=== PATIENT | female | born 2005 | race Two or more races ===

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

== ENCOUNTER 2023-01-16 13:59 | Outpatient (REF) | payer MEDICAID, SELFPAY ==
--- NOTE | ~2023-01-16 | US_ITS ---
EXAMINATION: US OBSTETRICAL ULTRASOUND CLINICAL INFORMATION: First trimester bleeding. COMPARISON: None available. LMP: 12/07/2022. Gestational age by maternal dates is 5 weeks and 5 days. Estimated date of delivery by maternal dates is 09/13/2023. TECHNIQUE: Transabdominal imaging of pelvis is obtained. FINDINGS: There is a single intrauterine gestational sac with visible yolk sac, embryo/fetus, and cardiac activity. There is no significant subchorionic hemorrhage or hematoma. HR: 109 beats per minute. CRL (crown rump length): 0.25 cm (5 weeks and 6 days +/- 4 days). GRETTA (estimated date of delivery): 09/12/2023 +/- 4 days. MATERNAL ADNEXA: The right maternal ovary measures 3.3 x 1.8 x 2.4 cm. The left maternal ovary measures 2.9 x 2.7 x 2.0 cm. There is a small corpus luteal cyst measuring 2.0 x 1.6 x 1.8 cm. There is no significant maternal adnexal mass. No maternal pelvic ascites. US/US OB pelvic and transvaginal IMPRESSION: 1. Single intrauterine gestation with ultrasound gestational age of 5 weeks and 6 days +/- 4 days. 2. Estimated date of delivery is 09/12/2023. +/- 4 days. 3. Small corpus luteal cyst left ovary.
== END 2023-01-16 14:00 | disposition home or self-care (01) ==
LOC: HO.US 13:59
PROVIDERS: Visit Provider Internal Medicine
DX: O20.9 Hemorrhage in early pregnancy, unspecified (principal); Z3A.01 Less than 8 weeks gestation of pregnancy
CPT/HCPCS: 76801; 76817

== ENCOUNTER 2023-01-17 14:14 | Outpatient (REF) | payer MEDICAID, SELFPAY | END 2023-01-17 14:15 | disposition home or self-care (01) | LOC: HO.LNP 14:14 | PROVIDERS: Visit Provider Obstetrics & Gynecology | DX: Z34.90 Encounter for supervision of normal pregnancy, unspecified, unspecified trimester (principal) | CPT/HCPCS: 0353U; 86850; 86900; 99202 ==

== ENCOUNTER 2023-01-17 14:52 | Outpatient (REF) | payer MEDICAID, SELFPAY ==
[2023-01-18 01:07] LABS: CT PCR NOT DETECTED (Not Detect.); NG PCR NOT DETECTED (Not Detect.)
== END 2023-01-17 14:53 | disposition home or self-care (01) ==
LOC: HO.LAB 14:52
PROVIDERS: Visit Provider Obstetrics & Gynecology
DX: O20.9 Hemorrhage in early pregnancy, unspecified (principal)
CPT/HCPCS: 0353U; 86850; 86900

== ENCOUNTER 2023-02-14 09:47 | Outpatient (REF) | payer MEDICAID, SELFPAY ==
[2023-02-14 11:06] LABS: Hematocrit 39.3 % (37.0-47.0); Hemoglobin 12.9 g/dl (12.0-16.0); Mean Corpuscular HGB Conc 32.8 g/dl (31.0-35.0); Mean Corpuscular Hemoglobin 26.1 pg (27.0-33.0); Mean Corpuscular Volume 79.6 fL (80.0-98.0); Mean Platelet Volume 9.3 fL (9.4-12.3); Platelet Count 275 X10*3/uL (160-400); Red Blood Count 4.94 X10*6/uL (4.20-5.50); Red Cell Distribution Width 13.9 % (11.0-16.0); White Blood Count 12.2 X10*3/uL (4.8-10.8)
[2023-02-14 11:32] LABS: Amphetamine Screen Urine Not Detected (Not Detect); Barbiturates, Urine Not Detected (Not Detect); Benzodiazepines Screen Urine Not Detected (Not Detect); Cannabinoid Screen Urine Not Detected (Not Detect); Cocaine Screen Urine Not Detected (Not Detect); Fentanyl, urine Not Detected (Not Detect); Opiate Screen Urine Not Detected (Not Detect); Phencyclidine Screen Urine Not Detected (Not Detect)
[2023-02-14 12:02] LABS: HBsAGNum1 0.24 S/CO (0.00-0.99); HIV AB/AG Nonreactive (Nonreactive); HIV Num 1 0.08 S/CO (0.00-0.99); Hepatitis B Surface Antigen Negative (Negative); ~HepC Num1 0.07 S/CO (0.00-0.79); ~Hepatitis C Antibody Nonreactive (Nonreactive)
[2023-02-14 12:05] LABS: Syphilis Screen Nonreactive (Nonreactive)
[2023-02-16 08:33] LABS: Rubella IgG Antibody 2.79 Index
[2023-02-16 08:39] LABS: Varicella IgG Antibody <135.00 index
[2023-02-24 03:19] LABS: CF Ethnicity NOT GIVEN; Cystic Fibrosis NEGATIVE (NEGATIVE)
== END 2023-02-14 09:48 | disposition home or self-care (01) ==
LOC: HO.LAB 09:47
PROVIDERS: Visit Provider Obstetrics & Gynecology
DX: O26.891 Other specified pregnancy related conditions, first trimester (principal); F41.9 Anxiety disorder, unspecified
CPT/HCPCS: 80307; 81220; 85027; 86762; 86780; 86787; 86803; 86850; 86900; 87086; 87340; 87389

== ENCOUNTER → 2023-03-06 10:53 | Outpatient (BNVA) | payer MEDICAID, SELFPAY | PROVIDERS: Visit Provider Advanced Practice Midwife | DX: O34.81 Maternal care for other abnormalities of pelvic organs, first trimester (principal); N83.12 Corpus luteum cyst of left ovary; Z3A.12 12 weeks gestation of pregnancy | CPT/HCPCS: 99212 ==

== ENCOUNTER → 2023-04-03 08:56 | Outpatient (BNVA) | payer MEDICAID, SELFPAY | PROVIDERS: Visit Provider Advanced Practice Midwife | DX: O99.342 Other mental disorders complicating pregnancy, second trimester (principal); Z3A.16 16 weeks gestation of pregnancy | CPT/HCPCS: 99212 ==

== ENCOUNTER → 2023-04-30 09:27 | Outpatient (BNVA) | payer MEDICAID, SELFPAY | PROVIDERS: PCP Internal Medicine; Visit Provider Advanced Practice Midwife | DX: Z34.02 Encounter for supervision of normal first pregnancy, second trimester (principal); Z3A.20 20 weeks gestation of pregnancy | CPT/HCPCS: 99212 ==

== ENCOUNTER 2023-06-06 10:51 | Outpatient (REF) | payer MEDICAID, SELFPAY ==
[2023-06-06 15:30] LABS: Hematocrit 32.4 % (37.0-47.0); Hemoglobin 10.3 g/dl (12.0-16.0); Mean Corpuscular HGB Conc 31.8 g/dl (31.0-35.0); Mean Corpuscular Hemoglobin 25.9 pg (27.0-33.0); Mean Corpuscular Volume 81.6 fL (80.0-98.0); Mean Platelet Volume 10.6 fL (9.4-12.3); Platelet Count 277 X10*3/uL (160-400); Red Blood Count 3.97 X10*6/uL (4.20-5.50); Red Cell Distribution Width 13.8 % (11.0-16.0); White Blood Count 14.9 X10*3/uL (4.8-10.8)
[2023-06-06 16:57] LABS: Glucose 1 Hour PP 50gm Dose 153 mg/dL (60-140)
[2023-06-08 03:04] LABS: Syphilis Screen Nonreactive (Nonreactive)
== END 2023-06-06 10:52 | disposition home or self-care (01) ==
LOC: HO.LAB 10:51
PROVIDERS: PCP Internal Medicine; Visit Provider Advanced Practice Midwife
DX: Z34.92 Encounter for supervision of normal pregnancy, unspecified, second trimester (principal)
CPT/HCPCS: 36415; 82950; 85027; 86780; 99212

== ENCOUNTER 2023-06-06 10:51 | Outpatient (AMB) | payer MEDICAID, SELFPAY ==
--- NOTE | 2023-06-06 11:05 | A.OFFVISPN_ITS ---
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 Yarns Required: No Allergies No Known Allergies Allergy (Verified 06/06/23 11:11) Medication List - Last Reconciled 06/06/23 by Melissa Prater CNM PNV no.[id number] 400 mcg-35 mg- 25 mg-5 mg ( Gummies) 1 tab PO daily 30 days Is last menstrual period known: Yes Last menstrual period: 12/07/22 Post menopausal: No Patient : Yes PFSH Social History Household Members: Significant Other Housing: Apartment Alcohol intake: never Patient Tobacco Use Status: Never used Tobacco Current occupational status: employed Current occupation: [employer] Sexual orientation: Straight/Heterosexual Gender identity: Female Female Reproductive History Menstrual Age of Menarche: 11 Duration of menses: 3-5 days Date of last menstrual period: 12/07/22 control method: none Total pregnancies: 1 History History 1 Elective abortions 0 Para 0 Spontaneous abortions 0 Hx # Term Pregnancies 0 Ectopic pregnancies 0 Hx # Pregnancies 0 Multiple births Questionnaire History History : 1 Visit GRETTA Calculator Estimated Delivery Date Method Current WG Current Estimate 09/12/23 Ultrasound #1 26w 0d Other Estimates 09/13/23 LMP (Certain) 25w 6d Expected Delivery Route/Plan vaginal Specific Issues/Plans Hx Anxiety, Teen Varicella nonimmune. OB Problem List: 17 yr. old ? ? G1 ?P0 ? ? ?LMP: 12/07/22 EDC: 09/13/23 ?by certain lmp, conf by u/s ? ? ?Blood type: O pos Problem List: 1. Testing: Panorama/and or First Tri screen: ? ?risk NT scan:sched for 03/07/23 AFP: FAS: Glucose: early ? 28 wk glucose: pending? CBC 1st Tri: 12.9/39.3/275? 28 wk. CBC: pending GBS: Vaccinations: Flu:discussed ..... Covid:is vaxed Tdap: Education/Services WIC: CBE: Breast feeding classes:intro to latch covered... Social Supports/Stressors: Living situation: lives in own apt w BF Supports:BF, family here and in [place] Work/school: has graduated from [employer] in [place], works at [employer] Transportation: Labor, and Concerns: Labor support: Plan: Infant Feeding Plans: breast- rev intial latching- 03/06/23 control: OB Visit Log Initial Weight: 167 lb Date -?-?-?-?-?-?-?-?-?-?-?-?- EGA Weight Gest Week Fundal Ht Present FHR move Efface % Edema BP PrePreg We Weight GTT -?-?-?-?-?-?-?-?-?-?-?-?- Glucose LV Protein Blood Type 02/14/23 -?-?-?-?-?-?-?-?-?-?-?-?- 10w 0d 168 lb (+16 oz) 168 l b -?-?-?-?-?-?-?-?-?-?-?-?- 02/16/23 -?-?-?-?-?-?-?-?-?-?-?-?- 10w 2d 03/06/23 -?-?-?-?-?-?-?-?-?-?-?-?- 12w 6d 170 lb (+3 lb) 13 160 126/76 170 lb -?-?-?-?-?-?-?-?-?-?-?-?- 04/03/23 -?-?-?-?-?-?-?-?-?-?-?-?- 16w 6d 170 lb (+3 lb) 16 150 active 102/70 1 70 lb -?-?-?-?-?-?-?-?--?-?-?-?- 04/30/23 -?-?-?-?-?-?-?-?-?-?-?-?- 20w 5d 175 lb (+8 lb) 20 135 active 110/70 1 75 lb -?-?-?-?-?-?-?-?-?-?-?-?- 06/06/23 -?-?-?-?-?-?-?-?-?-?-?-?- 26w 0d 179 lb (+12 lb) 26 140 active 130/70 179 lb -?-?-?-?-?-?-?-?-?-?-?-?- Notes Visit Date: 06/06/23 Last Updated by: Melissa Prater CNM Patient is here at 26 weeks and 0 days for scheduled visit. Review of the chart shows the ultrasound that was done on May 18 at 23 weeks and 0 days was within normal limits however they had some incomplete views and they requested a follow-up scan to be done in 4 weeks and I am placing the order right now for that. She does have some sniffles today but can not tell if there allergies or a cold she does not appear ill discussed allergies and ways to ameliorate them and ways to prevent and prevent transmission of upper respiratory infections. Discussed future flu vaccines/COVID vaccines. Her next visit can be in 2 weeks and that is when we will have her get the lab work as well I explained what we we testing for. Visit Date: 04/30/23 Last Updated by: Melissa Prater CNM Patient is here for her visit. She decided she did not really need to call [facility] for her panic attacks. Discussed that if she feels she needs assistance for anything involving how she is feeling about things that that would be the best place to start. She also recounts that sometimes she gets a little bit dizzy. Discussed temporary drops in blood pressure in that can happen and what to do if she is not feeling good to sit down and put her head down. No evidence of anemia in the labs. Patient did have her nuchal translucency ultrasound and the beginning of February which was within normal limits and she says she did go for the blood work however the results from the 1st trimester screening have not arrived to the chart yet. They will be requested again. Anatomy ultrasound was ordered at the last visit but has not been scheduled yet according to the patient another request sent to schedule this soon as she is now 20 weeks and 5 days.. Reviewed intake and ext acted changes in the next few weeks in the and supports. ALEXIA 4 weeks Visit Date: 04/03/23 Last Updated by: Melissa Prater CNM Here at 16 weeks and 6 days for her visit. She is doing fairly well but she did have some things to talk about today. She has had panic attacks often on since she was 7 years old and she feels that they are coming back stronger than they were for a while she has not been to therapy or anything for it she did talk to somebody about it when she was growing up in [place] but she would like to have some help around this she does not think it is related to stress or anxiety about the baby but she does identify the issue is anxiety. She says the is no issue with relationships. Discussed options and ways to slow her breathing and will place [facility] referral and I gave her brochures in Mosotho and Syriac so she can call herself as well. She feels she is eating well she went for the nuchal translucency ultrasound and she says she did go for the blood work but results are not in the chart will have someone call for those. Order placed for anatomy survey ultrasound in more less 3 weeks at [facility]. She sometimes feels like she gets a little lightheaded and her vision goes a little bit and she gets a little dizzy discussed temporary drops in blood pressure in she is not anemic and a random blood sugar done in January was within normal range reviewed what to do if she gets dizzy and how to keep herself safe. She also was in [place] for 2 weeks and enjoyed eating a lot of her grandma's rice. RTC 4 weeks Visit Date: 03/06/23 Last Updated by: Melissa Prater CNM Patient is here for her 1st provider visit at 12 weeks and 6 days she has certain dates and her date was also confirmed by an ultrasound at 5 weeks and 6 days which shielded in GRETTA of 09/12/2023 GRETTA by her 12/07/2022 LMP is 09/13/2023. We will use her GRETTA. She has her nuchal translucency ultrasound scheduled for tomorrow at [facility] and will be bringing her boyfriend there. She graduated from vocational program in [place] and has to diploma is. She works at [employer] she lives in her own apartment with her boyfriend and she says they are very happy. She is going to visit her family in [place] on March 24. She is vaccinated against COVID. I informed her about her lab work which was normal with the exception of not being immune to chickenpox but that can be rectified after her . She has plans to breastfeed reviewed healthy diet she eats a variety of foods in her diet. Reviewed the need for calcium and a very nutrition. She takes her vitamins every day. She has no worries about STDs. Pelvic exam was deferred as it was done on 01/18/[address] Salazar. Reviewed care and reasons to call and what it problems would necessitate of visit to [facility] and what indications might result in a transfer of care. She lives and works in [place] so prefers care here for now and is fine with delivering at [facility]. RTC 4 weeks. Reviewed that she will also be getting lab work in conjunction with the ultrasound tomorrow at [facility] and we will have the results in a couple of weeks. States she has a history of anxiety but is not having any problems now she scored 1 on the EPDS. Visit Date: 02/16/23 Varicella nonimmune, vaccination Visit Date: 02/14/23 Last Updated by: Miriam Puga LPN [facility] is here today for her nurse intake. LMP12/07/22 GRETTA 09/13/23. GRETTA by u/s on 09/13/23=CWD. 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 She lives at home with her significant other, and they are both excited about the . She does have anxiety per pt, but does not see a counselor at this time. Aware to reach out if she desires to have appt. Pt has little known FH of her parents, as they do not communicate much. Pt has had some nausea but is eating and drinking well. Discussed more frequent smaller amounts of food, healthy food choices, and good H2O intake. Pt is taking her PNV every day. She was smoking MJ but quit 2 mos prior to conceiving. She denies any vaginal bleeding, or cramping. She will be starting a low impact exercise program. Pt aware she will deliver at [facility], and if she becomes High risk at any point, she would be transferred to a [facility] practice. Pt will be traveling in February to [place] for vacation. Discussed with pt NT u/s and labs that will check for chromosome d.o. Pt will have her PNL done today as well as UDS. Pt brought to front desk monitor for scheduling OB PE. Discussed with pt, how to reach weighing station operator MD. packet discussed and given to pt. Assessment & Plan Assessment & Plan (1) Encounter for screening for malformation using ultrasound: Code(s): Z36.3 - Encounter for screening for malformations Category: Medical (2) Supervision of normal in second trimester: Code(s): Z34.92 - Encounter for supervision of normal , unspecified, second trimester Category: Medical Orders: Orders US OB follow up Today Z36.3 - Encounter for screening for malformations Glucose 1 Hour PP 50gm Dose Today Z34.92 - Encounter for supervision of normal , unspecified, second trimester, Z36.3 - Encounter for screening for malformations Complete Blood Count no Diff Today Z34.92 - Encounter for supervision of normal , unspecified, second trimester, Z36.3 - Encounter for screening for malformations Syphilis Screen Today Z34.92 - Encounter for supervision of normal , unspecified, second trimester, Z36.3 - Encounter for screening for malformations Coding Level of Care Code [place] Diagnoses Encounter for screening for malformation using ultrasound Z36.3 Supervision of normal in second trimester Z34.92
[2023-06-06 11:11] VITALS: BP 130/70; BMI 28.9
== END 2023-06-06 12:05 | disposition home or self-care (01) ==
LOC: HO.HWS 10:51
PROVIDERS: PCP Internal Medicine; Visit Provider Advanced Practice Midwife
DX: Z36.3 Encounter for antenatal screening for malformations (principal); Z34.92 Encounter for supervision of normal pregnancy, unspecified, second trimester
CPT/HCPCS: 25942

== ENCOUNTER 2023-06-08 10:50 | Outpatient (REF) | payer MEDICAID, SELFPAY ==
[2023-06-08 12:43] LABS: Glucose Fasting 68 mg/dL (60-99)
[2023-06-08 14:54] LABS: Glucose 2 Hour 132 mg/dL
[2023-06-08 15:22] LABS: Glucose 3 Hour 108 mg/dL
[2023-06-08 15:32] LABS: Glucose 1 Hour 136 mg/dL
== END 2023-06-08 10:51 | disposition home or self-care (01) ==
LOC: HO.LAB 10:50
PROVIDERS: Visit Provider Advanced Practice Midwife
DX: R73.09 Other abnormal glucose (principal)
CPT/HCPCS: 36415; 82951

== ENCOUNTER 2023-06-21 14:50 | Outpatient (AMB) | payer MEDICAID, SELFPAY ==
[2023-06-21 15:03] VITALS: BP 102/66; BMI 29.0
--- NOTE | 2023-06-21 15:03 | MHC.OFFVISPN ---
Intake Vital Signs 06/21/23 15:03 Height 5 ft 6 in Weight 180 lb BMI 29.0 BP 102/66 Intake Visit Reasons: stu Intake Note: Has been having back pains and has also been cramping Seed Laboratory Assistant Required: Yes Seed Laboratory Assistant Language: Singaporean Information Interpreted: non-clinical & clinical Meat Cooler: Meat Cooler Present (Janelle) Allergies No Known Allergies Allergy (Verified 06/21/23 15:12) Is last menstrual period known: Yes Last menstrual period: 12/07/22 Post menopausal: No Patient : Yes PFSH Social History Household Members: Significant Other Housing: Apartment Alcohol intake: never Patient Tobacco Use Status: Never used Tobacco Current occupational status: employed Current occupation: [employer] Sexual orientation: Straight/Heterosexual Gender identity: Female Female Reproductive History Menstrual Age of Menarche: 11 Date of last menstrual period: 12/07/22 control method: none Total pregnancies: 1 Number of Living Children: 0 History History 1 Elective abortions 0 Para 0 Spontaneous abortions 0 Hx # Term Pregnancies 0 Ectopic pregnancies 0 Hx # Pregnancies 0 Multiple births Questionnaire History History : 1 Geyser Depression Geyser Depression Scale I have been able to laugh and see the funny side of things: As much as I always could I have looked forward with enjoyment to things: As much as I ever did I have blamed myself unnecessarily when things went wrong: Not very often I have been anxious or worried for no reason: Yes, sometimes I have felt scared of panicky for no very good reason at all: Yes, sometimes Things have been getting on top of me: No, most of the time I have coped quite well I have been so unhappy that I have had difficulty sleeping: No, not at all I have felt sad or miserable: No, not at all I have been so unhappy that I have been crying: No, never The thought of harming myself has occurred to me: Never 6 PHQ Assessment Billing PHQ Assessment Tool: PHQ Assessment [id number] Visit GRETTA Calculator Estimated Delivery Date Method Current WG Current Estimate 09/12/23 Ultrasound #1 28w 1d Other Estimates 09/13/23 LMP (Certain) 28w 0d Expected Delivery Route/Plan vaginal Specific Issues/Plans Hx Anxiety, Teen Varicella nonimmune. OB Problem List: 17 yr. old ? ? G1 ?P0 ? ? ?LMP: 12/07/22 EDC: 09/13/23 ?by certain lmp, conf by u/s ? ? ?Blood type: O pos Problem List: 1. Testing: Panorama/and or First Tri screen: ? ?risk NT scan:sched for 03/07/23 AFP: FAS: Completed within normal limits. Glucose: early ? 28 wk glucose:=153, 3'gtt=68/136/132/108.- no gdm.... CBC 1st Tri: 12.9/39.3/275? 28 wk. CBC: 10.3/32.4/277 GBS: Vaccinations: Flu:discussed ..... Covid:is vaxed Tdap: Education/Services WIC: CBE: Breast feeding classes:intro to latch covered... 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 [place], works at [employer] Transportation: Labor, and Concerns: Labor support: Plan: Infant Feeding Plans: breast- rev intial latching- 03/06/23 control: OB Visit Log Initial Weight: 167 lb Date <del>?</del> EGA Weight Gest Week Fundal Ht Present FHR move Efface % Edema BP PrePreg We Weight GTT <del>?</del> Glucose LV Protein Blood Type 02/14/23 <del>?</del> 10w 0d 168 lb (+16 oz) 168 lb <del>?</del> 02/16/23 <del>?</del> 10w 2d 03/06/23 <del>?</del> 12w 6d 170 lb (+3 lb) 13 160 126/76 170 lb <del>?</del> 04/03/23 <del>?</del> 16w 6d 170 lb (+3 lb) 16 150 active 102/70 170 lb <del>?</del> 04/30/23 <del>?</del> 20w 5d 175 lb (+8 lb) 20 135 active 110/70 175 lb <del>?</del> 06/06/23 <del>?</del> 26w 0d 179 lb (+12 lb) 26 140 active 130/70 179 lb <del>?</del> 06/21/23 <del>?</del> 28w 1d 180 lb (+13 lb) 28 ? 150 active 102/66 180 lb <del>?</del> Notes Visit Date: 06/21/23 Last Updated by: Melissa Prater CNM Patient is here for visit at 28 weeks and 1 day. Her 3 hour GTT was within normal limits but her CBC showed some mild anemia with an H&H of 10 and 32. She is taking her iron but she sometimes forgets specially if she does not take it with her vitamin discussed strategies for remembering and better to take it with her vitamin than forget it altogether. She does not like juice that much to take it with the vitamin-C rich juice.. 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 She wants to be able to provide for herself and her baby on her own and not depend on anybody. She says her parents will help for the father the baby will step up to parental responsibilities too. A few days ago she did have some lower abdominal cramping that felt a little bit like period cramps so she laid down for a while and it got better and she felt it again another time. It is gone now I reviewed to drink more water and if she did so and it ever did not get better or if it became stronger and got worse she should call and we would tell her to go to [facility]. Abdomen was soft throughout this visit . The follow-up ultrasound that was done soon after the last visit showed normal anatomy and normal growth no need for further ultrasounds. Visit Date: 06/06/23 Last Updated by: Melissa Prater CNM Patient is here at 26 weeks and 0 days for scheduled visit. Review of the chart shows the ultrasound that was done on May 18 at 23 weeks and 0 days was within normal limits however they had some incomplete views and they requested a follow-up scan to be done in 4 weeks and I am placing the order right now for that. She does have some sniffles today but can not tell if there allergies or a cold she does not appear ill discussed allergies and ways to ameliorate them and ways to prevent and prevent transmission of upper respiratory infections. Discussed future flu vaccines/COVID vaccines. Her next visit can be in 2 weeks and that is when we will have her get the lab work as well I explained what we we testing for. Visit Date: 04/30/23 Last Updated by: Melissa Prater CNM Patient is here for her visit. She decided she did not really need to call [facility] for her panic attacks. Discussed that if she feels she needs assistance for anything involving how she is feeling about things that that would be the best place to start. She also recounts that sometimes she gets a little bit dizzy. Discussed temporary drops in blood pressure in that can happen and what to do if she is not feeling good to sit down and put her head down. No evidence of anemia in the labs. Patient did have her nuchal translucency ultrasound and the beginning of February which was within normal limits and she says she did go for the blood work however the results from the 1st trimester screening have not arrived to the chart yet. They will be requested again. Anatomy ultrasound was ordered at the last visit but has not been scheduled yet according to the patient another request sent to schedule this soon as she is now 20 weeks and 5 days.. Reviewed intake and ext acted changes in the next few weeks in the and supports. STU 4 weeks Visit Date: 04/03/23 Last Updated by: Melissa Prater CNM Here at 16 weeks and 6 days for her visit. She is doing fairly well but she did have some things to talk about today. She has had panic attacks often on since she was 7 years old and she feels that they are coming back stronger than they were for a while she has not been to therapy or anything for it she did talk to somebody about it when she was growing up in [place] but she would like to have some help around this she does not think it is related to stress or anxiety about the baby but she does identify the issue is anxiety. She says the is no issue with relationships. Discussed options and ways to slow her breathing and will place [facility] referral and I gave her brochures in [place] and Singaporean so she can call herself as well. She feels she is eating well she went for the nuchal translucency ultrasound and she says she did go for the blood work but results are not in the chart will have someone call for those. Order placed for anatomy survey ultrasound in more less 3 weeks at [facility]. She sometimes feels like she gets a little lightheaded and her vision goes a little bit and she gets a little dizzy discussed temporary drops in blood pressure in she is not anemic and a random blood sugar done in January was within normal range reviewed what to do if she gets dizzy and how to keep herself safe. She also was in [place] for 2 weeks and enjoyed eating a lot of her grandma's rice. RTC 4 weeks Visit Date: 03/06/23 Last Updated by: Melissa Prater CNM Patient is here for her 1st provider visit at 12 weeks and 6 days she has certain dates and her date was also confirmed by an ultrasound at 5 weeks and 6 days which shielded in GRETTA of 09/12/2023 GRETTA by her 12/07/2022 LMP is 09/13/2023. We will use her GRETTA. She has her nuchal translucency ultrasound scheduled for tomorrow at [facility] and will be bringing her boyfriend there. She graduated from vocational program in [place] and has to diploma is. She works at [employer] she lives in her own apartment with her boyfriend and she says they are very happy. She is going to visit her family in [place] on March 24. She is vaccinated against COVID. I informed her about her lab work which was normal with the exception of not being immune to chickenpox but that can be rectified after her . She has plans to breastfeed reviewed healthy diet she eats a variety of foods in her diet. Reviewed the need for calcium and a very nutrition. She takes her vitamins every day. She has no worries about STDs. Pelvic exam was deferred as it was done on 01/18/[address] Salazar. Reviewed care and reasons to call and what it problems would necessitate of visit to [facility] and what indications might result in a transfer of care. She lives and works in [place] so prefers care here for now and is fine with delivering at [facility]. RTC 4 weeks. Reviewed that she will also be getting lab work in conjunction with the ultrasound tomorrow at [facility] and we will have the results in a couple of weeks. States she has a history of anxiety but is not having any problems now she scored 1 on the EPDS. Visit Date: 02/16/23 Varicella nonimmune, vaccination Visit Date: 02/14/23 Last Updated by: MARY Swensonharpreet is here today for her nurse intake. LMP12/07/22 GRETTA 09/13/23. GRETTA by u/s on 09/13/23=CWD. 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 She lives at home with her significant other, and they are both excited about the . She does have anxiety per pt, but does not see a counselor at this time. Aware to reach out if she desires to have appt. Pt has little known FH of her parents, as they do not communicate much. Pt has had some nausea but is eating and drinking well. Discussed more frequent smaller amounts of food, healthy food choices, and good H2O intake. Pt is taking her PNV every day. She was smoking MJ but quit 2 mos prior to conceiving. She denies any vaginal bleeding, or cramping. She will be starting a low impact exercise program. Pt aware she will deliver at [facility], and if she becomes High risk at any point, she would be transferred to a [facility] practice. Pt will be traveling in February to [place] for vacation. Discussed with pt NT u/s and labs that will check for chromosome d.o. Pt will have her PNL done today as well as UDS. Pt brought to front desk administrator for scheduling OB PE. Discussed with pt, how to reach stone and plate preparer apprentice MD. packet discussed and given to pt. Assessment & Plan Assessment & Plan (1) Anemia affecting : Code(s): O99.019 - Anemia complicating , unspecified trimester Category: Medical (2) Encounter for supervision of normal in third trimester: Code(s): Z34.93 - Encounter for supervision of normal , unspecified, third trimester Category: Medical Coding Level of Care Code [place] Diagnoses Anemia affecting O99.019 Encounter for supervision of normal in third trimester Z34.93
== END 2023-06-21 15:56 | disposition home or self-care (01) ==
LOC: HO.HWS 14:50
PROVIDERS: PCP Internal Medicine; Visit Provider Advanced Practice Midwife
DX: Z34.93 Encounter for supervision of normal pregnancy, unspecified, third trimester (principal); O99.019 Anemia complicating pregnancy, unspecified trimester
CPT/HCPCS: 25942

== ENCOUNTER → 2023-06-21 14:50 | Outpatient (BNVA) | payer MEDICAID, SELFPAY | PROVIDERS: PCP Internal Medicine; Visit Provider Advanced Practice Midwife | DX: O99.013 Anemia complicating pregnancy, third trimester (principal); D64.9 Anemia, unspecified; Z3A.28 28 weeks gestation of pregnancy | CPT/HCPCS: 99212 ==

== ENCOUNTER 2023-07-10 09:45 | Outpatient (AMB) | payer MEDICAID, SELFPAY ==
[2023-07-10 09:55] VITALS: BP 114/64
--- NOTE | 2023-07-10 09:55 | A.OFFVISPN_ITS ---
Intake Vital Signs 07/10/23 09:55 Height 5 ft 6 in Weight 186 lb BMI 30.0 BP 114/64 Intake Visit Reasons: [facility] [employer] Reservations Coordinator Required: No Allergies No Known Allergies Allergy (Verified 07/10/23 09:56) Is last menstrual period known: Yes Last menstrual period: 12/07/22 Post menopausal: No Patient : Yes PFSH Social History Household Members: Significant Other Housing: Apartment Alcohol intake: never Patient Tobacco Use Status: Never used Tobacco Current occupational status: employed Current occupation: [employer] Sexual orientation: Straight/Heterosexual Gender identity: Female Female Reproductive History Menstrual Age of Menarche: 11 Date of last menstrual period: 12/07/22 control method: none Total pregnancies: 1 History History 1 Elective abortions 0 Para 0 Spontaneous abortions 0 Hx # Term Pregnancies 0 Ectopic pregnancies 0 Hx # Pregnancies 0 Multiple births Questionnaire History History : 1 Visit GRETTA Calculator Estimated Delivery Date Method Current WG Current Estimate 09/12/23 Ultrasound #1 30w 6d Other Estimates 09/13/23 LMP (Certain) 30w 5d Expected Delivery Route/Plan vaginal Specific Issues/Plans Hx Anxiety, Teen Varicella nonimmune. OB Problem List: 17 yr. old ? ? G1 ?P0 ? ? ?LMP: 12/07/22 EDC: 09/13/23 ?by certain lmp, conf by u/s ? ? ?Blood type: O pos Problem List: 1. Testing: Panorama/and or First Tri screen: ? ?risk NT scan:sched for 03/07/23 AFP: FAS: Completed within normal limits. Glucose: early ? 28 wk glucose:=153, 3'gtt=68/136/132/108.- no gdm.... CBC 1st Tri: 12.9/39.3/275? 28 wk. CBC: 10.3/32.4/277 GBS: Vaccinations: Flu:discussed ..... Covid:is vaxed Tdap: Education/Services WIC: CBE: Breast feeding classes:intro to latch covered... Social Supports/Stressors: Living situation: lives in own apt w BF Supports:BF, family here and in [place] Work/school: has graduated from voc school in [place], works at [employer] Transportation: Labor, and Concerns: Labor support: Plan: Infant Feeding Plans: breast- rev intial latching- 03/06/23 control: OB Visit Log Initial Weight: 167 lb Date -?-?-?-?-?-?-?-?-?-?-?-?- EGA Weight Gest Week Fundal Ht Present FHR move Efface % Edema BP PrePreg We Weight GTT -?-?-?-?-?-?-?-?-?-?-?--?- Glucose LV Protein Blood Type 02/14/23 -?-?-?-?-?-?-?-?-?-?-?-?- 10w 0d 168 lb (+16 oz) 168 l b -?-?-?-?-?-?-?-?-?-?-?-?- 02/16/23 -?-?-?-?-?-?-?-?-?-?-?-?- 10w 2d 03/06/23 -?-?-?-?-?-?-?-?-?-?-?-?- 12w 6d 170 lb (+3 lb) 13 160 126/76 170 lb -?-?-?-?-?-?-?-?-?-?-?-?- 04/03/23 -?-?-?-?-?-?-?-?-?-?-?-?- 16w 6d 170 lb (+3 lb) 16 150 active 102/70 1 70 lb -?-?-?-?-?-?-?-?-?-?-?-?- 04/30/23 -?-?-?-?-?-?-?-?-?-?-?-?- 20w 5d 175 lb (+8 lb) 20 135 active 110/70 1 75 lb -?-?-?-?-?-?--?-?-?-?-?-?- 06/06/23 -?-?-?-?-?-?-?-?-?-?-?-?- 26w 0d 179 lb (+12 lb) 26 140 active 130/70 179 lb -?-?-?-?-?-?-?-?-?-?-?-?- 06/21/23 -?-?-?-?-?-?-?-?-?-?-?-?- 28w 1d 180 lb (+13 lb) 28 ? 150 active 102/66 180 lb -?-?-?-?-?-?-?-?-?-?-?-?- 07/10/23 -?-?-?-?-?-?-?-?-?-?-?-?- 30w 6d 186 lb (+19 lb) 30 ? 140 active 114/64 186 lb -?-?-?-?-?-?-?-?-?-?-?-?- Notes Visit Date: 07/10/23 Last Updated by: Melissa Prater CNM Patient is here for visit she is not having any concerns though did inquire about various sensations in her body reviewed what to do if she has pain recommend making sure she is drinking sufficient fluids. Discussed round ligament pain and other sensations. Not having any problem with constipation these days taking her iron and vitamins. Getting ready for the baby at home. Continue preparations for labor. RTC 2w. Visit Date: 06/21/23 Last Updated by: Melissa Prater CNM Patient is here for visit at 28 weeks and 1 day. Her 3 hour GTT was within normal limits but her CBC showed some mild anemia with an H&H of 10 and 32. She is taking her iron but she sometimes forgets specially if she does not take it with her vitamin discussed strategies for remembering and better to take it with her vitamin than forget it altogether. She does not like juice that much to take it with the vitamin-C rich juice.. 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 She wants to be able to provide for herself and her baby on her own and not depend on anybody. She says her parents will help for the father the baby will step up to parental responsibilities too. A few days ago she did have some lower abdominal cramping that felt a little bit like period cramps so she laid down for a while and it got better and she felt it again another time. It is gone now I reviewed to drink more water and if she did so and it ever did not get better or if it became stronger and got worse she should call and we would tell her to go to [facility]. Abdomen was soft throughout this visit . The follow-up ultrasound that was done soon after the last visit showed normal anatomy and normal growth no need for further ultrasounds. Visit Date: 06/06/23 Last Updated by: Melissa Prater CNM Patient is here at 26 weeks and 0 days for scheduled visit. Review of the chart shows the ultrasound that was done on May 18 at 23 weeks and 0 days was within normal limits however they had some incomplete views and they requested a follow-up scan to be done in 4 weeks and I am placing the order right now for that. She does have some sniffles today but can not tell if there allergies or a cold she does not appear ill discussed allergies and ways to ameliorate them and ways to prevent and prevent transmission of upper respiratory infections. Discussed future flu vaccines/COVID vaccines. Her next visit can be in 2 weeks and that is when we will have her get the lab work as well I explained what we we testing for. Visit Date: 04/30/23 Last Updated by: Melissa Prater CNM Patient is here for her visit. She decided she did not really need to call [facility] for her panic attacks. Discussed that if she feels she needs assistance for anything involving how she is feeling about things that that would be the best place to start. She also recounts that sometimes she gets a little bit dizzy. Discussed temporary drops in blood pressure in that can happen and what to do if she is not feeling good to sit down and put her head down. No evidence of anemia in the labs. Patient did have her nuchal translucency ultrasound and the beginning of February which was within normal limits and she says she did go for the blood work however the results from the 1st trimester screening have not arrived to the chart yet. They will be requested again. Anatomy ultrasound was ordered at the last visit but has not been scheduled yet according to the patient another request sent to schedule this soon as she is now 20 weeks and 5 days.. Reviewed intake and ext acted changes in the next few weeks in the and supports. ALEXIA 4 weeks Visit Date: 04/03/23 Last Updated by: Melissa Prater CNM Here at 16 weeks and 6 days for her visit. She is doing fairly well but she did have some things to talk about today. She has had panic attacks often on since she was 7 years old and she feels that they are coming back stronger than they were for a while she has not been to therapy or anything for it she did talk to somebody about it when she was growing up in [place] but she would like to have some help around this she does not think it is related to stress or anxiety about the baby but she does identify the issue is anxiety. She says the is no issue with relationships. Discussed options and ways to slow her breathing and will place [facility] referral and I gave her brochures in Turkish and Afghan so she can call herself as well. She feels she is eating well she went for the nuchal translucency ultrasound and she says she did go for the blood work but results are not in the chart will have someone call for those. Order placed for anatomy survey ultrasound in more less 3 weeks at [facility]. She sometimes feels like she gets a little lightheaded and her vision goes a little bit and she gets a little dizzy discussed temporary drops in blood pressure in she is not anemic and a random blood sugar done in January was within normal range reviewed what to do if she gets dizzy and how to keep herself safe. She also was in [place] for 2 weeks and enjoyed eating a lot of her grandma's rice. RTC 4 weeks Visit Date: 03/06/23 Last Updated by: Melissa Prater CNM Patient is here for her 1st provider visit at 12 weeks and 6 days she has certain dates and her date was also confirmed by an ultrasound at 5 weeks and 6 days which shielded in GRETTA of 09/12/2023 GRETTA by her 12/07/2022 LMP is 09/13/2023. We will use her GRETTA. She has her nuchal translucency ultrasound scheduled for tomorrow at [facility] and will be bringing her boyfriend there. She graduated from vocational program in [place] and has to diploma is. She works at [employer] she lives in her own apartment with her boyfriend and she says they are very happy. She is going to visit her family in [place] on March 24. She is vaccinated against COVID. I informed her about her lab work which was normal with the exception of not being immune to chickenpox but that can be rectified after her . She has plans to breastfeed reviewed healthy diet she eats a variety of foods in her diet. Reviewed the need for calcium and a very nutrition. She takes her vitamins every day. She has no worries about STDs. Pelvic exam was deferred as it was done on 01/18/[address] Salazar. Reviewed care and reasons to call and what it problems would necessitate of visit to [facility] and what indications might result in a transfer of care. She lives and works in [place] so prefers care here for now and is fine with delivering at [facility]. RTC 4 weeks. Reviewed that she will also be getting lab work in conjunction with the ultrasound tomorrow at [facility] and we will have the results in a couple of weeks. States she has a history of anxiety but is not having any problems now she scored 1 on the EPDS. Visit Date: 02/16/23 Varicella nonimmune, vaccination Visit Date: 02/14/23 Last Updated by: Miriam Puga LPN [facility] is here today for her nurse intake. LMP12/07/22 GRETTA 09/13/23. GRETTA by u/s on 09/13/23=CWD. 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 She lives at home with her significant other, and they are both excited about the . She does have anxiety per pt, but does not see a counselor at this time. Aware to reach out if she desires to have appt. Pt has little known FH of her parents, as they do not communicate much. Pt has had some nausea but is eating and drinking well. Discussed more frequent smaller amounts of food, healthy food choices, and good H2O intake. Pt is taking her PNV every day. She was smoking MJ but quit 2 mos prior to conceiving. She denies any vaginal bleeding, or cramping. She will be starting a low impact exercise program. Pt aware she will deliver at [facility], and if she becomes High risk at any point, she would be transferred to a [facility] practice. Pt will be traveling in February to [place] for vacation. Discussed with pt NT u/s and labs that will check for chromosome d.o. Pt will have her PNL done today as well as UDS. Pt brought to medical front desk specialist for scheduling OB PE. Discussed with pt, how to reach paper cone machine operator MD. packet discussed and given to pt. Assessment & Plan Assessment & Plan (1) Encounter for supervision of normal in third trimester: Code(s): Z34.93 - Encounter for supervision of normal , unspecified, third trimester Category: Medical (2) Anemia affecting : Code(s): O99.019 - Anemia complicating , unspecified trimester Category: Medical Coding Level of Care Code [place] Diagnoses Encounter for supervision of normal in third trimester Z34.93 Anemia affecting O99.019
== END 2023-07-10 10:16 | disposition home or self-care (01) ==
PROVIDERS: PCP Internal Medicine; Visit Provider Advanced Practice Midwife
DX: Z34.93 Encounter for supervision of normal pregnancy, unspecified, third trimester (principal); O99.019 Anemia complicating pregnancy, unspecified trimester
CPT/HCPCS: 25942

== ENCOUNTER → 2023-07-10 09:45 | Outpatient (BNVA) | payer MEDICAID, SELFPAY | PROVIDERS: PCP Internal Medicine; Visit Provider Advanced Practice Midwife | DX: O99.013 Anemia complicating pregnancy, third trimester (principal); D64.9 Anemia, unspecified; Z3A.30 30 weeks gestation of pregnancy | CPT/HCPCS: 99212 ==

== ENCOUNTER 2023-07-24 11:42 | Outpatient (AMB) | payer MEDICAID, SELFPAY ==
[2023-07-24 11:44] VITALS: BP 112/70
--- NOTE | 2023-07-24 11:44 | A.OFFVISPN_ITS ---
Intake Vital Signs 07/24/23 11:44 Height 5 ft 6 in Weight 186 lb BMI 30.0 BP 112/70 Intake Visit Reasons: ALEXIA/45 mins Intake Note: The patient agreed to use of a medical detail representative during this encounter. Scribed for CARLITA Douglas by Gretchen Sanders medical detail representative, on 07/24/2023 at 11:57 am EST. Allergies No Known Allergies Allergy (Verified 07/24/23 11:44) Patient : Yes PFSH Medical History (Updated 07/24/23 @ 12:09 by Gretchen Sanders) Small for dates affecting management of mother Social History Household Members: Significant Other Housing: Apartment Alcohol intake: never Patient Tobacco Use Status: Never used Tobacco Current occupational status: employed Current occupation: [employer] Sexual orientation: Straight/Heterosexual Gender identity: Female Female Reproductive History Menstrual Age of Menarche: 11 History History 1 Elective abortions 0 Para 0 Spontaneous abortions 0 Hx # Term Pregnancies 0 Ectopic pregnancies 0 Hx # Pregnancies 0 Multiple births Visit GRETTA Calculator Estimated Delivery Date Method Current WG Current Estimate 09/12/23 Ultrasound #1 32w 6d Other Estimates 09/13/23 LMP (Certain) 32w 5d Expected Delivery Route/Plan vaginal Specific Issues/Plans 17 yr. old ? ? G1 ?P0 ? ? ?LMP: 12/07/22 EDC: 09/13/23 ?by certain lmp, conf by u/s ? ? ?Blood type: O pos Problem List: 1. Anxiety 2. Teen 3. Varicella non immune Testing: Panorama/and or First Tri screen: ? ?risk NT scan:sched for 03/07/23 AFP: FAS: Completed within normal limits. Glucose: early ? 28 wk glucose:=153, 3'gtt=68/136/132/108.- no gdm.... CBC 1st Tri: 12.9/39.3/275? 28 wk. CBC: 10.3/32.4/277 GBS: Vaccinations: Flu:discussed ..... Covid:is vaxed Tdap: given 07/24/23 Education/Services WIC: encouraged to join [facility]: Breast feeding classes:intro to latch covered... 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 graduated from voc school in [place], works at [employer] Transportation: Labor, and Concerns: Labor support: Maykel Plan: prefers no epidural Infant Feeding Plans: breast- rev intial latching- 03/06/23 control: OB Visit Log Initial Weight: 167 lb Date -?-?-?-?-?-?-?-?-?-?-?-?- EGA Weight Gest Week Fundal Ht Present FHR move Efface % Edema BP PrePreg We Weight GTT -?-?-?-?-?-?-?-?-?-?-?-?- Glucose LV Protein Blood Type 02/14/23 -?-?-?-?-?-?-?-?-?-?-?-?- 10w 0d 168 lb (+16 oz) 168 l b -?-?-?-?-?-?-?-?-?-?-?-?- 02/16/23 -?-?-?-?-?-?-?-?-?-?-?-?- 10w 2d 03/06/23 -?-?-?-?-?-?-?-?-?-?-?-?- 12w 6d 170 lb (+3 lb) 13 160 126/76 170 lb -?-?-?-?-?-?-?-?-?-?-?-?- 04/03/23 -?-?-?-?-?-?-?-?-?-?-?-?- 16w 6d 170 lb (+3 lb) 16 150 active 102/70 1 70 lb -?-?-?-?-?-?-?-?-?-?-?-?- 04/30/23 -?-?-?-?-?-?-?-?-?-?-?-?- 20w 5d 175 lb (+8 lb) 20 135 active 110/70 1 75 lb -?-?-?-?-?-?-?-?-?-?-?-?- 06/06/23 -?-?-?-?-?-?-?-?-?-?-?-?- 26w 0d 179 lb (+12 lb) 26 140 active 130/70 179 lb -?-?-?-?-?-?-?-?-?-?-?-?- 06/21/23 -?-?-?-?-?-?-?-?-?-?-?-?- 28w 1d 180 lb (+13 lb) 28 ? 150 active 102/66 180 lb -?-?-?-?-?-?-?-?-?-?-?-?- 07/10/23 -?-?-?-?-?-?-?-?--?-?-?-?- 30w 6d 186 lb (+19 lb) 30 ? 140 active 114/64 186 lb -?-?-?-?-?-?-?-?-?-?-?-?- 07/24/23 -?-?-?-?-?-?-?-?-?-?-?-?- 32w 6d 186 lb (+19 lb) 31 150 active 112/70 186 lb -?-?-?-?-?-?-?-?-?-?-?-?- Notes Visit Date: 07/24/23 Last Updated by: Gayla Vee CNM Note author: Gayla Vee CNM/Gretchen [facility] Hospitalmedical detail representative 32.6 wk ALEXIA. Feeling well. Taking PNV. Hydrating well and good appetite Good FM, no LOF, VB or abd pain. Reports sharp cramping at times, now resolved, improved at rest. Discussed: PTL - LOF, VB, abd pain. Advanced discomforts and self help measures, when to call for s/s re: pelvic pain, pressure, ligament discomfort. TDaP explained and ordered today. growth US ordered. PEC - headaches: not resolved with 2 regular strength Tylenol doses, visual disturbances warnings and when to call for further evaluation. Reviewed when to call for any VB, LOF, contractions, Kick counts reviewed and when to call for any decreased FM. Encouraged patient to sign up for patient portal. Discussed to call the service here for any emergencies/deliveries to be directed to [facility]. All of her questions and concerns were addressed to the best of my ability and shared decision making. She is agreeable to plan of care. RTO 2 wks. Visit Date: 07/10/23 Last Updated by: Melissa Prater CNM Patient is here for visit she is not having any concerns though did inquire about various sensations in her body reviewed what to do if she has pain recommend making sure she is drinking sufficient fluids. Discussed round ligament pain and other sensations. Not having any problem with constipation these days taking her iron and vitamins. Getting ready for the baby at home. Continue preparations for labor. RTC 2w. Visit Date: 06/21/23 Last Updated by: Melissa Prater CNM Patient is here for visit at 28 weeks and 1 day. Her 3 hour GTT was within normal limits but her CBC showed some mild anemia with an H&H of 10 and 32. She is taking her iron but she sometimes forgets specially if she does not take it with her vitamin discussed strategies for remembering and better to take it with her vitamin than forget it altogether. She does not like juice that much to take it with the vitamin-C rich juice.. 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 She wants to be able to provide for herself and her baby on her own and not depend on anybody. She says her parents will help for the father the baby will step up to parental responsibilities too. A few days ago she did have some lower abdominal cramping that felt a little bit like period cramps so she laid down for a while and it got better and she felt it again another time. It is gone now I reviewed to drink more water and if she did so and it ever did not get better or if it became stronger and got worse she should call and we would tell her to go to [facility]. Abdomen was soft throughout this visit . The follow-up ultrasound that was done soon after the last visit showed normal anatomy and normal growth no need for further ultrasounds. Visit Date: 06/06/23 Last Updated by: Melissa Prater CNM Patient is here at 26 weeks and 0 days for scheduled visit. Review of the chart shows the ultrasound that was done on May 18 at 23 weeks and 0 days was within normal limits however they had some incomplete views and they requested a follow-up scan to be done in 4 weeks and I am placing the order right now for that. She does have some sniffles today but can not tell if there allergies or a cold she does not appear ill discussed allergies and ways to ameliorate them and ways to prevent and prevent transmission of upper respiratory infections. Discussed future flu vaccines/COVID vaccines. Her next visit can be in 2 weeks and that is when we will have her get the lab work as well I explained what we we testing for. Visit Date: 04/30/23 Last Updated by: Melissa Prater CNM Patient is here for her visit. She decided she did not really need to call [facility] for her panic attacks. Discussed that if she feels she needs assistance for anything involving how she is feeling about things that that would be the best place to start. She also recounts that sometimes she gets a little bit dizzy. Discussed temporary drops in blood pressure in that can happen and what to do if she is not feeling good to sit down and put her head down. No evidence of anemia in the labs. Patient did have her nuchal translucency ultrasound and the beginning of February which was within normal limits and she says she did go for the blood work however the results from the 1st trimester screening have not arrived to the chart yet. They will be requested again. Anatomy ultrasound was ordered at the last visit but has not been scheduled yet according to the patient another request sent to schedule this soon as she is now 20 weeks and 5 days.. Reviewed intake and ext acted changes in the next few weeks in the and supports. ALEXIA 4 weeks Visit Date: 04/03/23 Last Updated by: Melissa Prater CNM Here at 16 weeks and 6 days for her visit. She is doing fairly well but she did have some things to talk about today. She has had panic attacks often on since she was 7 years old and she feels that they are coming back stronger than they were for a while she has not been to therapy or anything for it she did talk to somebody about it when she was growing up in [place] but she would like to have some help around this she does not think it is related to stress or anxiety about the baby but she does identify the issue is anxiety. She says the is no issue with relationships. Discussed options and ways to slow her breathing and will place [facility] referral and I gave her brochures in Czech and Kazakh so she can call herself as well. She feels she is eating well she went for the nuchal translucency ultrasound and she says she did go for the blood work but results are not in the chart will have someone call for those. Order placed for anatomy survey ultrasound in more less 3 weeks at [facility]. She sometimes feels like she gets a little lightheaded and her vision goes a little bit and she gets a little dizzy discussed temporary drops in blood pressure in she is not anemic and a random blood sugar done in January was within normal range reviewed what to do if she gets dizzy and how to keep herself safe. She also was in [place] for 2 weeks and enjoyed eating a lot of her grandma's rice. RTC 4 weeks Visit Date: 03/06/23 Last Updated by: Melissa Prater CNM Patient is here for her 1st provider visit at 12 weeks and 6 days she has certain dates and her date was also confirmed by an ultrasound at 5 weeks and 6 days which shielded in GRETTA of 09/12/2023 GRETTA by her 12/07/2022 LMP is 09/13/2023. We will use her GRETTA. She has her nuchal translucency ultrasound scheduled for tomorrow at [facility] and will be bringing her boyfriend there. She graduated from vocational program in [place] and has to diploma is. She works at [employer] she lives in her own apartment with her boyfriend and she says they are very happy. She is going to visit her family in [place] on March 24. She is vaccinated against COVID. I informed her about her lab work which was normal with the exception of not being immune to chickenpox but that can be rectified after her . She has plans to breastfeed reviewed healthy diet she eats a variety of foods in her diet. Reviewed the need for calcium and a very nutrition. She takes her vitamins every day. She has no worries about STDs. Pelvic exam was deferred as it was done on 01/18/[address] Salazar. Reviewed care and reasons to call and what it problems would necessitate of visit to [facility] and what indications might result in a transfer of care. She lives and works in [place] so prefers care here for now and is fine with delivering at [facility]. RTC 4 weeks. Reviewed that she will also be getting lab work in conjunction with the ultrasound tomorrow at [facility] and we will have the results in a couple of weeks. States she has a history of anxiety but is not having any problems now she scored 1 on the EPDS. Visit Date: 02/16/23 Varicella nonimmune, vaccination Visit Date: 02/14/23 Last Updated by: Miriam Puga LPN [facility] is here today for her nurse intake. LMP12/07/22 GRETTA 09/13/23. GRETTA by u/s on 09/13/23=CWD. 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 She lives at home with her significant other, and they are both excited about the . She does have anxiety per pt, but does not see a counselor at this time. Aware to reach out if she desires to have appt. Pt has little known FH of her parents, as they do not communicate much. Pt has had some nausea but is eating and drinking well. Discussed more frequent smaller amounts of food, healthy food choices, and good H2O intake. Pt is taking her PNV every day. She was smoking MJ but quit 2 mos prior to conceiving. She denies any vaginal bleeding, or cramping. She will be starting a low impact exercise program. Pt aware she will deliver at [facility], and if she bec omes High risk at any point, she would be transferred to a [facility] practice. Pt will be traveling in February to [place] for vacation. Discussed with pt NT u/s and labs that will check for chromosome d.o. Pt will have her PNL done today as well as UDS. Pt brought to lockstitch front edge tape sewer for scheduling OB PE. Discussed with pt, how to reach chronometer assembler and adjuster MD. packet discussed and given to pt. Immunizations Boostrix Tdap 2.5 Lf unit-8 mcg-5 Lf/0.5 mL intramuscular syringe Performing Provider: Gayla Vee CNM Performing Location: [facility] Administered by: Miriam Puga LPN on 07/24/23 12:20 Dose Route Admin Location Dispensed Lot Number Expiration Date [facility] [employer] 0.5 mL IM Left Deltoid 0.5 mL [id number] 09/22/24 [id number] [employer] VIS Given Date VIS Provided VIS Publication Date 07/24/23 Single Vaccine 21 Eligibility Eligibility Date Funding Source Not [facility] Eligible 07/24/23 Private Assessment & Plan Assessment & Plan (1) Encounter for supervision of normal in third trimester: Code(s): Z34.93 - Encounter for supervision of normal , unspecified, third trimester Category: Medical (2) Small for dates affecting management of mother: Code(s): O36.5990 - Maternal care for other known or suspected poor growth, unspecified trimester, not applicable or unspecified Plan: Note author: Gayla Vee CNM/Gretchen Sanders medical detail representative 32.6 wk ALEXIA. Feeling well. Taking PNV. Hydrating well and good appetite Good FM, no LOF, VB or abd pain. Reports sharp cramping at times. Discussed: PTL - LOF, VB, abd pain. TDaP explained and orderd today. growth US ordered. PEC - headaches: not resolved with 2 regular strength Tylenol doses, visual d isturbances warnings and when to call for further evaluation. Reviewed when to call for any VB, LOF, contractions, Kick counts reviewed and when to call for any decreased FM. Encouraged patient to sign up for patient portal. Discussed to call the service here for any emergencies/deliveries to be directed to [facility]. All of her questions and concerns were addressed to the best of my ability and shared decision making. She is agreeable to plan of care. Orders: Orders TDaP Immunization Today Z34.93 - Encounter for supervision of normal , unspecified, third trimester US OB follow up Today O36.5990 - Maternal care for other known or suspected poor growth, unspecified trimester, not applicable or unspecified Coding Level of Care Code [place] Diagnoses Encounter for supervision of normal in third trimester Z34.93 Small for dates affecting management of mother O36.5987
== END 2023-07-24 12:26 | disposition home or self-care (01) ==
PROVIDERS: PCP Internal Medicine; Visit Provider Advanced Practice Midwife
DX: Z34.93 Encounter for supervision of normal pregnancy, unspecified, third trimester (principal); O36.5990 Maternal care for other known or suspected poor fetal growth, unspecified trimester, not applicable or unspecified
CPT/HCPCS: 25942

== ENCOUNTER → 2023-07-24 11:42 | Outpatient (BNVA) | payer MEDICAID, SELFPAY | PROVIDERS: PCP Internal Medicine; Visit Provider Advanced Practice Midwife | DX: O36.5930 Maternal care for other known or suspected poor fetal growth, third trimester, not applicable or unspecified (principal); Z23 Encounter for immunization; Z3A.32 32 weeks gestation of pregnancy | CPT/HCPCS: 90471; 90715; 99212 ==

== ENCOUNTER 2023-08-09 10:31 | Outpatient (AMB) | payer MEDICAID, SELFPAY ==
--- NOTE | 2023-08-09 10:37 | A.OFFVISPN_ITS ---
Intake Vital Signs 08/09/23 10:38 Height 5 ft 6 in Weight 190 lb BMI 30.7 BP 120/70 Intake Visit Reasons: ALEXIA Allergies No Known Allergies Allergy (Verified 08/09/23 10:38) Patient : Yes PFSH Medical History (Updated 07/24/23 @ 12:09 by Gretchen Sanders) Small for dates affecting management of mother Social History Household Members: Significant Other Housing: Apartment Alcohol intake: never Patient Tobacco Use Status: Never used Tobacco Current occupational status: employed Current occupation: [employer] Sexual orientation: Straight/Heterosexual Gender identity: Female Female Reproductive History Menstrual Age of Menarche: 11 History History 1 Elective abortions 0 Para 0 Spontaneous abortions 0 Hx # Term Pregnancies 0 Ectopic pregnancies 0 Hx # Pregnancies 0 Multiple births Visit GRETTA Calculator Estimated Delivery Date Method Current WG Current Estimate 09/12/23 Ultrasound #1 35w 1d Other Estimates 09/13/23 LMP (Certain) 35w 0d Expected Delivery Route/Plan vaginal Specific Issues/Plans 17 yr. old ? ? G1 ?P0 ? ? ?LMP: 12/07/22 EDC: 09/13/23 ?by certain lmp, conf by u/s ? ? ?Blood type: O pos Problem List: 1. Anxiety 2. Teen 3. Varicella non immune Testing: Panorama/and or First Tri screen: ? ?risk NT scan:sched for 03/07/23 AFP: FAS: Completed within normal limits. Glucose: early ? 28 wk glucose:=153, 3'gtt=68/136/132/108.- no gdm.... CBC 1st Tri: 12.9/39.3/275? 28 wk. CBC: 10.3/32.4/277 GBS: Vaccinations: Flu:discussed ..... Covid:is vaxed Tdap: given 07/24/23 Education/Services WIC: encouraged to join CBE: online Breast feeding classes:intro to latch covered... 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 graduated from [employer] in [place], works at [employer] Transportation: Labor, and Concerns: Labor support: Maykel Plan: prefers no epidural Feeding Plans: breast- rev intial latching- 03/06/23 control: OB Visit Log Initial Weight: 167 lb Date -?-?-?-?-?-?-?-?-?-?-?-?- EGA Weight Gest Week Fundal Ht Present FHR move Efface % Edema BP PrePreg We Weight GTT -?-?-?-?-?-?-?-?-?-?-?-?- Glucose LV Protein Blood Type 02/14/23 -?-?-?-?-?-?-?-?-?-?-?-?- 10w 0d 168 lb (+16 oz) 168 l b -?-?-?-?-?-?-?-?-?-?-?-?- 02/16/23 -?-?-?-?-?-?-?-?-?-?-?-?- 10w 2d 03/06/23 -?-?-?-?-?-?-?-?-?-?-?-?- 12w 6d 170 lb (+3 lb) 13 160 126/76 170 lb -?-?-?-?-?-?-?-?-?-?-?-?- 04/03/23 -?-?-?-?-?-?-?-?-?-?-?-?- 16w 6d 170 lb (+3 lb) 16 150 active 102/70 1 70 lb -?-?-?-?-?-?-?-?-?-?-?-?- 04/30/23 -?-?-?-?-?-?-?-?-?-?-?-?- 20w 5d 175 lb (+8 lb) 20 135 active 110/70 1 75 lb -?-?-?-?-?-?-?-?-?-?-?-?- 06/06/23 -?-?-?-?-?-?-?-?-?-?-?-?- 26w 0d 179 lb (+12 lb) 26 140 active 130/70 179 lb -?-?-?-?-?-?-?-?-?-?-?-?- 06/21/23 -?-?-?-?-?-?-?-?-?-?-?-?- 28w 1d 180 lb (+13 lb) 28 ? 150 active 102/66 180 lb -?-?-?-?-?-?-?-?-?-?-?-?- 07/10/23 -?-?-?-?-?-?-?-?-?-?-?-?- 30w 6d 186 lb (+19 lb) 30 ? 140 active 114/64 186 lb -?-?-?-?-?-?-?-?-?-?-?-?- 07/24/23 -?-?-?-?-?-?-?-?-?-?-?-?- 32w 6d 186 lb (+19 lb) 31 150 active 112/70 186 lb -?-?-?-?-?-?-?-?-?-?-?-?- 08/09/23 -?-?-?-?-?-?-?-?-?-?-?-?- 35w 1d 190 lb (+23 lb) 32 150 active 120/70 190 lb -?-?-?-?-?-?-?-?-?-?-?-?- Notes Visit Date: 08/09/23 Last Updated by: Gayla Vee CNM Note author: Gayla Vee CNM/Melinda Joyner medical records analyst 35.1 wk ALEXIA. Feeling well. Taking PNV. Hydrating well and good appetite Good FM, no LOF, ?VB or abd pain. US: pending completed 08/08/23, was told all was normal. Advised GBS screen n/v. Enc. [facility] enrollment-online breast feeding video/supports. CBE-done via the web. Discussed: PTL - LOF, VB, abd pain. PEC - headaches: not resolved with 2 regular strength Tylenol doses, visual disturbances warnings and when to call for further evaluation. Reviewed when to call for any VB, LOF, contractions, Kick counts reviewed and when to call for any decreased FM. Encouraged patient to sign up for patient portal. Discussed to call the service here for any emergencies/deliveries to be directed to [facility]. All of her questions and concerns were addressed to the best of my ability and shared decision making. She is agreeable to plan of care. RTO in 1 week. Visit Date: 07/24/23 Last Updated by: Gayla Vee CNM Note author: Gayla Vee CNM/Gretchen Sanders medical records analyst 32.6 wk ALEXIA. Feeling well. Taking PNV. Hydrating well and good appetite Good FM, no LOF, VB or abd pain. Reports sharp cramping at times, now resolved, improved at rest. Discussed: PTL - LOF, VB, abd pain. Advanced discomforts and self help measures, when to call for s/s re: pelvic pain, pressure, ligament discomfort. TDaP explained and ordered today. growth US ordered. PEC - headaches: not resolved with 2 regular strength Tylenol doses, visual disturbances warnings and when to call for further evaluation. Reviewed when to call for any VB, LOF, contractions, Kick counts reviewed and when to call for any decreased FM. Encouraged patient to sign up for patient portal. Discussed to call the service here for any emergencies/deliveries to be directed to [facility]. All of her questions and concerns were addressed to the best of my ability and shared decision making. She is agreeable to plan of care. RTO 2 wks. Visit Date: 07/10/23 Last Updated by: Melissa Prater CNM Patient is here for visit she is not having any concerns though did inquire about various sensations in her body reviewed what to do if she has pain recommend making sure she is drinking sufficient fluids. Discussed round ligament pain and other sensations. Not having any problem with constipation these days taking her iron and vitamins. Getting ready for the baby at home. Continue preparations for labor. RTC 2w. Visit Date: 06/21/23 Last Updated by: Melissa Prater CNM Patient is here for visit at 28 weeks and 1 day. Her 3 hour GTT was within normal limits but her CBC showed some mild anemia with an H&H of 10 and 32. She is taking her iron but she sometimes forgets specially if she does not take it with her vitamin discussed strategies for remembering and better to take it with her vitamin than forget it altogether. She does not like juice that much to take it with the vitamin-C rich juice.. She started her maternity leave with her job because her boss was telling her she had to negotiate with her coworkers when she needed off for an appointments and was making difficulty with her coworkers so she decided instead to stop working and she is using the time to study for a test in order to join either the [employer] or the [employer] and she is hoping to takeit before she has the baby because the results are good for 2 years. She wants to be able to provide for herself and her baby on her own and not depend on anybody. She says her parents will help for the father the baby will step up to parental responsibilities too. A few days ago she did have some lower abdominal cramping that felt a l ittle bit like period cramps so she laid down for a while and it got better and she felt it again another time. It is gone now I reviewed to drink more water and if she did so and it ever did not get better or if it became stronger and got worse she should call and we would tell her to go to [facility]. Abdomen was soft throughout this visit . The follow-up ultrasound that was done soon after the last visit showed normal anatomy and normal growth no need for further ultrasounds. Visit Date: 06/06/23 Last Updated by: Melissa Prater CNM Patient is here at 26 weeks and 0 days for scheduled visit. Review of the chart shows the ultrasound that was done on May 18 at 23 weeks and 0 days was within normal limits however they had some incomplete views and they requested a follow-up scan to be done in 4 weeks and I am placing the order right now for that. She does have some sniffles today but can not tell if there allergies or a cold she does not appear ill discussed allergies and ways to ameliorate them and ways to prevent and prevent transmission of upper respiratory infections. Discussed future flu vaccines/COVID vaccines. Her next visit can be in 2 weeks and that is when we will have her get the lab work as well I explained what we we testing for. Visit Date: 04/30/23 Last Updated by: Melissa Prater CNM Patient is here for her visit. She decided she did not really need to call [facility] for her panic attacks. Discussed that if she feels she needs assistance for anything involving how she is feeling about things that that would be the best place to start. She also recounts that sometimes she gets a little bit dizzy. Discussed temporary drops in blood pressure in that can happen and what to do if she is not feeling good to sit down and put her head down. No evidence of anemia in the labs. Patient did have her nuchal translucency ultrasound and the beginning of February which was within normal limits and she says she did go for the blood work however the results from the 1st trimester screening have not arrived to the chart yet. They will be requested again. Anatomy ultrasound was ordered at the last visit but has not been scheduled yet according to the patient another request sent to schedule this soon as she is now 20 weeks and 5 days.. Reviewed intake and ext acted changes in the next few weeks in the and supports. ALEXIA 4 weeks Visit Date: 04/03/23 Last Updated by: Melissa Prater CNM Here at 16 weeks and 6 days for her visit. She is doing fairly well but she did have some things to talk about today. She has had panic attacks often on since she was 7 years old and she feels that they are coming back stronger than they were for a while she has not been to therapy or anything for it she did talk to somebody about it when she was growing up in [place] but she would like to have some help around this she does not think it is related to stress or anxiety about the baby but she does identify the issue is anxiety. She says the is no issue with relationships. Discussed options and ways to slow her breathing and will place [facility] referral and I gave her brochures in Bengali and Venezuelan so she can call herself as well. She feels she is eating well she went for the nuchal translucency ultrasound and she says she did go for the blood work but results are not in the chart will have someone call for those. Order placed for anatomy survey ultrasound in more less 3 weeks at [facility]. She sometimes feels like she gets a little lightheaded and her vision goes a little bit and she gets a little dizzy discussed temporary drops in blood pressure in she is not anemic and a random blood sugar done in January was within normal range reviewed what to do if she gets dizzy and how to keep herself safe. She also was in [place] for 2 weeks and enjoyed eating a lot of her grandma's rice. RTC 4 weeks Visit Date: 03/06/23 Last Updated by: Melissa Prater CNM Patient is here for her 1st provider visit at 12 weeks and 6 days she has certain dates and her date was also confirmed by an ultrasound at 5 weeks and 6 days which shielded in GRETTA of 09/12/2023 GRETTA by her 12/07/2022 LMP is 09/13/2023. We will use her GRETTA. She has her nuchal translucency ultrasound scheduled for tomorrow at [facility] and will be bringing her boyfriend there. She graduated from vocational program in [place] and has to diploma is. She works at [employer] she lives in her own apartment with her boyfriend and she says they are very happy. She is going to visit her family in [place] on March 24. She is vaccinated against COVID. I informed her about her lab work which was normal with the exception of not being immune to chickenpox but that can be rectified after her . She has plans to breastfeed reviewed healthy diet she eats a variety of foods in her diet. Reviewed the need for calcium and a very nutrition. She takes her vitamins every day. She has no worries about STDs. Pelvic exam was deferred as it was done on 01/18/[address] Salazar. Reviewed care and reasons to call and what it problems would necessitate of visit to [facility] and what indications might result in a transfer of care. She lives and works in [place] so prefers care here for now and is fine with delivering at [facility]. RTC 4 weeks. Reviewed that she will also be getting lab work in conjunction with the ultrasound tomorrow at [facility] and we will have the results in a couple of weeks. States she has a history of anxiety but is not having any problems now she scored 1 on the EPDS. Visit Date: 02/16/23 Varicella nonimmune, vaccination Visit Date: 02/14/23 Last Updated by: Miriam Puga LPN Luciagilbertoharpreet is here today for her nurse intake. LMP12/07/22 GRETTA 09/13/23. GRETTA by u/s on 09/13/23=CWD. 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 She lives at home with her significant other, and they are both excited about the . She does have anxiety per pt, but does not see a counselor at this time. Aware to reach out if she desires to have appt. Pt has little known FH of her parents, as they do not communicate much. Pt has had some nausea but is eating and drinking well. Discussed more frequent smaller amounts of food, healthy food choices, and good H2O intake. Pt is taking her PNV every day. She was smoking MJ but quit 2 mos prior to conceiving. She denies any vaginal bleeding, or cramping. She will be starting a low impact exercise program. Pt aware [place] [facility] [place] and if she becomes High risk at any point, she would be transferred to a [facility] [place]. Pt will be traveling in February to [place] for vacation. Discussed with pt NT u/s and labs that will check for chromosome d.o. Pt will have her PNL done today as well as UDS. Pt brought to help desk support specialist for scheduling OB PE. Discussed with pt, how to re ach waste collection driver MD. packet discussed and given to pt. Coding Level of Care Code Zenobia
[2023-08-09 10:38] VITALS: BP 120/70; BMI 30.7
== END 2023-08-09 11:12 | disposition home or self-care (01) ==
PROVIDERS: PCP Internal Medicine; Visit Provider Advanced Practice Midwife
DX: Z34.90 Encounter for supervision of normal pregnancy, unspecified, unspecified trimester (principal)
CPT/HCPCS: 25942

== ENCOUNTER → 2023-08-09 10:31 | Outpatient (BNVA) | payer MEDICAID, SELFPAY | PROVIDERS: PCP Internal Medicine; Visit Provider Advanced Practice Midwife | DX: Z34.03 Encounter for supervision of normal first pregnancy, third trimester (principal) | CPT/HCPCS: 99212 ==

== ENCOUNTER 2023-08-16 11:39 | Outpatient (REF) | payer MEDICAID, SELFPAY | END 2023-08-16 11:40 | disposition home or self-care (01) | LOC: HO.LNP 11:39 | PROVIDERS: PCP Internal Medicine; Visit Provider Advanced Practice Midwife | DX: O36.5930 Maternal care for other known or suspected poor fetal growth, third trimester, not applicable or unspecified (principal); O99.343 Other mental disorders complicating pregnancy, third trimester; F41.9 Anxiety disorder, unspecified; Z3A.36 36 weeks gestation of pregnancy | CPT/HCPCS: 0353U; 87150; 99212 ==

== ENCOUNTER 2023-08-16 11:39 | Outpatient (AMB) | payer MEDICAID, SELFPAY ==
--- NOTE | 2023-08-16 11:42 | A.OFFVISPN_ITS ---
Intake Vital Signs 08/16/23 11:46 Height 5 ft 6 in Weight 191 lb BMI 30.8 BP 124/76 Intake Visit Reasons: ALEXIA Intake Note: pt c/o headache last few days, has trouble taking pills The patient agreed to use of a nuclear medicine medical director during this encounter. Scribed for CARLITA Douglas by Gretchen Sandres, nuclear medicine medical director, on 08/16/2023 at 11:48am EST. Plastic Parts Fabricator: Plastic Parts Fabricator Present (Lauryn) Allergies No Known Allergies Allergy (Verified 08/16/23 11:47) Patient : Yes PFSH Medical History (Updated 07/24/23 @ 12:09 by Gretchen Sanders) Small for dates affecting management of mother Social History Household Members: Significant Other Housing: Apartment Alcohol intake: never Patient Tobacco Use Status: Never used Tobacco Current occupational status: employed Current occupation: [employer] Sexual orientation: Straight/Heterosexual Gender identity: Female Female Reproductive History Menstrual Age of Menarche: 11 History History 1 Elective abortions 0 Para 0 Spontaneous abortions 0 Hx # Term Pregnancies 0 Ectopic pregnancies 0 Hx # Pregnancies 0 Multiple births Visit GRETTA Calculator Estimated Delivery Date Method Current WG Current Estimate 09/12/23 Ultrasound #1 36w 1d Other Estimates 09/13/23 LMP (Certain) 36w 0d Expected Delivery Route/Plan vaginal Specific Issues/Plans 17 yr. old ? ? G1 ?P0 ? ? ?LMP: 12/07/22 EDC: 09/13/23 ?by certain lmp, conf by u/s ? ? ?Blood type: O pos Problem List: 1. Anxiety 2. Teen 3. Varicella non immune Testing: Panorama/and or First Tri screen: ? ?risk NT scan:sched for 03/07/23 AFP: FAS: Completed within normal limits. Glucose: early ? 28 wk glucose:=153, 3'gtt=68/136/132/108.- no gdm.... CBC 1st Tri: 12.9/39.3/275? 28 wk. CBC: 10.3/32.4/277 GBS: Vaccinations: Flu:discussed ..... Covid:is vaxed Tdap: given 07/24/23 Education/Services WIC: encouraged to join CBE: online Breast feeding classes:intro to latch covered... Social Supports/Stressors: Living situation: lives in own apt w BF (Maykel) Supports:BF, family here and in [place] Work/school: has graduated from [employer] in [place], works at [employer] Transportation: Labor, and Concerns: Labor support: Maykel Plan: prefers no epidural Infant Feeding Plans: breast- rev intial latching- 03/06/23 control: OB Visit Log Initial Weight: 167 lb Date -?-?-?-?-?-?-?-?-?-?-?-?- EGA Weight Gest Week Fundal Ht Present FHR move Efface % Edema BP PrePreg We Weight GTT -?-?-?-?-?-?-?-?-?-?-?-?- Glucose LV Protein Blood Type 02/14/23 -?-?-?-?-?-?-?-?-?-?-?-?- 10w 0d 168 lb (+16 oz) 168 l b -?-?-?-?-?-?-?-?-?-?-?-?- 02/16/23 -?-?-?-?-?-?-?-?-?-?-?-?- 10w 2d 03/06/23 -?-?-?-?-?-?-?-?-?-?-?-?- 12w 6d 170 lb (+3 lb) 13 160 126/76 170 lb -?-?-?-?-?-?-?-?-?-?-?-?- 04/03/23 -?-?-?-?-?-?-?-?-?-?-?-?- 16w 6d 170 lb (+3 lb) 16 150 active 102/70 1 70 lb -?-?-?-?-?-?-?-?-?--?-?-?- 04/30/23 -?-?-?-?-?-?-?-?-?-?-?-?- 20w 5d 175 lb (+8 lb) 20 135 active 110/70 1 75 lb -?-?-?-?-?-?-?-?-?-?-?-?- 06/06/23 -?-?-?-?-?-?-?-?-?-?-?-?- 26w 0d 179 lb (+12 lb) 26 140 active 130/70 179 lb -?-?-?-?-?-?-?-?-?-?-?-?- 06/21/23 -?-?-?-?-?-?-?-?-?-?-?-?- 28w 1d 180 lb (+13 lb) 28 ? 150 active 102/66 180 lb -?-?-?-?-?-?-?-?-?-?-?-?- 07/10/23 -?-?-?-?-?-?-?-?-?-?-?-?- 30w 6d 186 lb (+19 lb) 30 ? 140 active 114/64 186 lb -?-?-?-?-?-?-?-?-?-?-?-?- 07/24/23 -?-?-?-?-?-?-?-?-?-?-?-?- 32w 6d 186 lb (+19 lb) 31 150 active 112/70 186 lb -?-?-?-?-?-?-?-?-?-?-?-?- 08/09/23 -?-?-?-?-?-?-?-?-?-?-?-?- 35w 1d 190 lb (+23 lb) 32 150 active 120/70 190 lb -?-?-?-?-?-?-?-?-?-?-?-?- 08/16/23 -?-?-?-?-?-?-?-?-?-?-?-?- 36w 1d 191 lb (+24 lb) 33 150 active 124/76 191 lb -?-?-?-?-?-?-?-?-?-?-?-?- Notes Visit Date: 08/16/23 Last Updated by: Gayla Vee CNM Note author: Gayla Vee CNM/Gretchen Sanders nuclear medicine medical director 31.5 36.1 wk ALEXIA. Feeling well. Taking PNV. Hydrating well and good appetite Good FM, no LOF, VB or abd pain. Not sleeping as well recently. Reports headache last few days which is not her normal and has trouble swallowing pills so she does not take anything for the headache. Reports no other symptoms. Denies vaginal itching or irritation. Discussed: PTL - LOF, VB, abd pain. GBS and gc/ct testing today, requested VE-LTC. Recommend getting the flu vaccination. Growth US ordered; small for dates. PEC - headaches: not resolved with 2 regular strength Tylenol doses, visual disturbances warnings and when to call for further evaluation. Discussed liquid form of Tylenol as an option for her to use. Reviewed when to call for any VB, LOF, contractions, Kick counts reviewed and when to call for any decreased FM. Encouraged patient to sign up for patient portal. Discussed to call the service here for any emergencies/deliveries to be directed to [facility]. All of her questions and concerns were addressed to the best of my ability and shared decision making. She is agreeable to plan of care. RTO 1 wk. Visit Date: 08/09/23 Last Updated by: Gayla Vee CNM Note author: Gayla Vee CNM/Melinda Joyner nuclear medicine medical director 35.1 wk ALEXIA. Feeling well. Taking PNV. Hydrating well and good appetite Good FM, no LOF, ?VB or abd pain. US: pending completed 08/08/23, was told all was normal. Advised GBS screen n/v. Enc. [facility] enrollment-online breast feeding video/supports. CBE-done via the web. Discussed: PTL - LOF, VB, abd pain. PEC - headaches: not resolved with 2 regular strength Tylenol doses, visual disturbances warnings and when to call for further evaluation. Reviewed when to call for any VB, LOF, contractions, Kick counts reviewed and when to call for any decreased FM. Encouraged patient to sign up for patient portal. Discussed to call the service here for any emergencies/deliveries to be directed to [facility]. All of her questions and concerns were addressed to the best of my ability and shared decision making. She is agreeable to plan of care. RTO in 1 week. Visit Date: 07/24/23 Last Updated by: Gayla Vee CNM Note author: Gayla Vee CNM/Gretchen Sanders nuclear medicine medical director 32.6 wk ALEXIA. Feeling well. Taking PNV. Hydrating well and good appetite Good FM, no LOF, VB or abd pain. Reports sharp cramping at times, now resolved, improved at rest. Discussed: PTL - LOF, VB, abd pain. Advanced discomforts and self help measures, when to call for s/s re: pelvic pain, pressure, ligament discomfort. TDaP explained and ordered today. growth US ordered. PEC - headaches: not resolved with 2 regular strength Tylenol doses, visual disturbances warnings and when to call for further evaluation. Reviewed when to call for any VB, LOF, contractions, Kick counts reviewed and when to call for any decreased FM. Encouraged patient to sign up for patient portal. Discussed to call the service here for any emergencies/deliveries to be directed to [facility]. All of her questions and concerns were addressed to the best of my ability and shared decision making. She is agreeable to plan of care. RTO 2 wks. Visit Date: 07/10/23 Last Updated by: Melissa Prater CNM Patient is here for visit she is not having any concerns though did inquire about various sensations in her body reviewed what to do if she has pain recommend making sure she is drinking sufficient fluids. Discussed round ligament pain and other sensations. Not having any problem with constipation these days taking her iron and vitamins. Getting ready for the baby at home. Continue preparations for labor. RTC 2w. Visit Date: 06/21/23 Last Updated by: Melissa Prater CNM Patient is here for visit at 28 weeks and 1 day. Her 3 hour GTT was within normal limits but her CBC showed some mild anemia with an H&H of 10 and 32. She is taking her iron but she sometimes forgets specially if she does not take it with her vitamin discussed strategies for remembering and better to take it with her vitamin than forget it altogether. She does not like juice that much to take it with the vitamin-C rich juice.. 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 She wants to be able to provide for herself and her baby on her own and not depend on anybody. She says her parents will help for the father the baby will step up to parental responsibilities too. A few days ago she did have some lower abdominal cramping that felt a little bit like period cramps so she laid down for a while and it got better and she felt it again another time. It is gone now I reviewed to drink more water and if she did so and it ever did not get better or if it became stronger and got worse she should call and we would tell her to go to [facility]. Abdomen was soft throughout this visit . The follow-up ultrasound that was done soon after the last visit showed normal anatomy and normal growth no need for further ultrasounds. Visit Date: 06/06/23 Last Updated by: Melissa Prater CNM Patient is here at 26 weeks and 0 days for scheduled visit. Review of the chart shows the ultrasound that was done on May 18 at 23 weeks and 0 days was within normal limits however they had some incomplete views and they requested a follow-up scan to be done in 4 weeks and I am placing the order right now for that. She does have some sniffles today but can not tell if there allergies or a cold she does not appear ill discussed allergies and ways to ameliorate them and ways to prevent and prevent transmission of upper respiratory infections. Discussed future flu vaccines/COVID vaccines. Her next visit can be in 2 weeks and that is when we will have her get the lab work as well I explained what we we testing for. Visit Date: 04/30/23 Last Updated by: Melissa Prater CNM Patient is here for her visit. She decided she did not really need to call [facility] for her panic attacks. Discussed that if she feels she needs assistance for anything involving how she is feeling about things that that would be the best place to start. She also recounts that sometimes she gets a little bit dizzy. Discussed temporary drops in blood pressure in that can happen and what to do if she is not feeling good to sit down and put her head down. No evidence of anemia in the labs. Patient did have her nuchal translucency ultrasound and the beginning of February which was within normal limits and she says she did go for the blood work however the results from the 1st trimester screening have not arrived to the chart yet. They will be requested again. Anatomy ultrasound was ordered at the last visit but has not been scheduled yet according to the patient another request sent to schedule this soon as she is now 20 weeks and 5 days.. Reviewed intake and ext acted changes in the next few weeks in the and supports. ALEXIA 4 weeks Visit Date: 04/03/23 Last Updated by: Melissa Prater CNM Here at 16 weeks and 6 days for her visit. She is doing fairly well but she did have some things to talk about today. She has had panic attacks often on since she was 7 years old and she feels that they are coming back stronger than they were for a while she has not been to therapy or anything for it she did talk to somebody about it when she was growing up in [place] but she would like to have some help around this she does not think it is related to stress or anxiety about the baby but she does identify the issue is anxiety. She says the is no issue with relationships. Discussed options and ways to slow her breathing and will place [facility] referral and I gave her brochures in Korean and Serbian so she can call herself as well. She feels she is eating well she went for the nuchal translucency ultrasound and she says she did go for the blood work but results are not in the chart will have someone call for those. Order placed for anatomy survey ultrasound in more less 3 weeks at [facility]. She sometimes feels like she gets a little lightheaded and her vision goes a little bit and she gets a little dizzy discussed temporary drops in blood pressure in she is not anemic and a random blood sugar done in January was within normal range reviewed what to do if she gets dizzy and how to keep herself safe. She also was in [place] for 2 weeks and enjoyed eating a lot of her grandma's rice. RTC 4 weeks Visit Date: 03/06/23 Last Updated by: Melissa Prater CNM Patient is here for her 1st provider visit at 12 weeks and 6 days she has certain dates and her date was also confirmed by an ultrasound at 5 weeks and 6 days which shielded in GRETTA of 09/12/2023 GRETTA by her 12/07/2022 LMP is 09/13/2023. We will use her GRETTA. She has her nuchal translucency ultrasound scheduled for tomorrow at [facility] and will be bringing her boyfriend there. She graduated from vocational program in [place] and has to diploma is. She works at [employer] she lives in her own apartment with her boyfriend and she says they are very happy. She is going to visit her family in [place] on March 24. She is vaccinated against COVID. I informed her about her lab work which was normal with the exception of not being immune to chickenpox but that can be rectified after her . She has plans to breastfeed reviewed healthy diet she eats a variety of foods in her diet. Reviewed the need for calcium and a very nutrition. She takes her vitamins every day. She has no worries about STDs. Pelvic exam was deferred as it was done on 01/18/[address] Salazar. Reviewed care and reasons to call and what it problems would necessitate of visit to [facility] and what indications might result in a transfer of care. She lives and works in [place] so prefers care here for now and is fine with delivering at [facility]. RTC 4 weeks. Reviewed that she will also be getting lab work in conjunction with the ultrasound tomorrow at [facility] and we will have the results in a couple of weeks. States she has a history of anxiety but is not having any problems now she scored 1 on the EPDS. Visit Date: 02/16/23 Varicella nonimmune, vaccination Visit Date: 02/14/23 Last Updated by: Miriam Puga LPN [facility] is here today for her nurse intake. LMP12/07/22 GRETTA 09/13/23. GRETTA by u/s on 09/13/23=CWD. 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 She lives at home with her significant other, and they are both excited about the . She does have anxiety per pt, but does not see a counselor at this time. Aware to reach out if she desires to have appt. Pt has little known FH of her parents, as they do not communicate much. Pt has had some nausea but is eating and drinking well. Discussed more frequent smaller amounts of food, healthy food choices, and good H2O intake. Pt is taking her PNV every day. She was smoking MJ but quit 2 mos prior to conceiving. She denies any vaginal bleeding, or cramping. She will be starting a low impact exercise program. Pt aware she will deliver at [facility], and if she becomes High risk at any point, she would be transferred to a [facility] practice. Pt will be traveling in February to [place] for vacation. Discussed with pt NT u/s and labs that will check for chromosome d.o. Pt will have her PNL done today as well as UDS. Pt brought to front sight attacher for scheduling OB PE. Discussed with pt, how to reach voice data communications engineer MD. packet discussed and given to pt. Exam Const Constitutional General: cooperative, healthy appearing, no acute distress, well developed and alert Orientation/consciousness: patient oriented x3 General Exam: Yes bladder normal to palpation External Female Exam: normal external appearance and normal appearance of the urethra Urethra: normal appearance of the urethra Speculum exam - vagina: normal appearance of the vagina and normal discharge Bimanual exam- vagina & uterus: normal bimanual exam, uterine size normal, bladder normal to palpation and normal palpation Bimanual Exam- Adnexa, other: normal adnexae and no masses Assessment & Plan Assessment & Plan (1) Encounter for supervision of normal in third trimester: Code(s): Z34.93 - Encounter for supervision of normal , unspecified, third trimester Category: Medical Orders: Orders US OB follow up 08/29/23 O36.5990 - Maternal care for other known or suspected poor growth, unspecified trimester, not applicable or unspecified CT NG by PCR Today Z34.93 - Encounter for supervision of normal , unspe cified, third trimester Group B Strep PCR Today Z34.93 - Encounter for supervision of normal , unspecified, third trimester Coding Level of Care Code [place] Diagnoses Encounter for supervision of normal in third trimester Z34.
[2023-08-16 11:46] VITALS: BP 124/76; BMI 30.8
== END 2023-08-16 12:03 | disposition home or self-care (01) ==
LOC: HO.HWSW 11:39
PROVIDERS: PCP Internal Medicine; Visit Provider Advanced Practice Midwife
DX: Z34.93 Encounter for supervision of normal pregnancy, unspecified, third trimester (principal)
CPT/HCPCS: 25942

== ENCOUNTER 2023-08-16 11:58 | Outpatient (REF) | payer MEDICAID, SELFPAY ==
[2023-08-16 16:43] LABS: CT PCR NOT DETECTED (Not Detect.); NG PCR NOT DETECTED (Not Detect.)
[2023-08-17 09:08] LABS: Allergic to Penicillin? No
== END 2023-08-16 11:59 | disposition home or self-care (01) ==
LOC: HO.LAB 11:58
PROVIDERS: Visit Provider Advanced Practice Midwife
DX: Z34.93 Encounter for supervision of normal pregnancy, unspecified, third trimester (principal)
CPT/HCPCS: 0353U; 87150

== ENCOUNTER 2023-08-23 10:26 | Outpatient (AMB) | payer MEDICAID, SELFPAY ==
[2023-08-23 10:32] VITALS: BP 110/76; BMI 31.0
--- NOTE | 2023-08-23 10:32 | A.OFFVISPN_ITS ---
Intake Vital Signs 08/23/23 10:32 Height 5 ft 6 in Weight 192 lb BMI 31.0 BP 110/76 Intake Visit Reasons: ALEXIA Allergies No Known Allergies Allergy (Verified 08/23/23 10:32) Patient : Yes PFSH Medical History (Updated 07/24/23 @ 12:09 by Gretchen Sanders) Small for dates affecting management of mother Social History Household Members: Significant Other Housing: Apartment Alcohol intake: never Patient Tobacco Use Status: Never used Tobacco Current occupational status: employed Current occupation: [employer] Sexual orientation: Straight/Heterosexual Gender identity: Female Female Reproductive History Menstrual Age of Menarche: 11 History History 1 Elective abortions 0 Para 0 Spontaneous abortions 0 Hx # Term Pregnancies 0 Ectopic pregnancies 0 Hx # Pregnancies 0 Multiple births Visit GRETTA Calculator Estimated Delivery Date Method Current WG Current Estimate 09/12/23 Ultrasound #1 37w 1d Other Estimates 09/13/23 LMP (Certain) 37w 0d Expected Delivery Route/Plan vaginal Specific Issues/Plans 17 yr. old ? ? G1 ?P0 ? ? ?LMP: 12/07/22 EDC: 09/13/23 ?by certain lmp, conf by u/s ? ? ?Blood type: O pos Problem List: 1. Anxiety 2. Teen 3. Varicella non immune Testing: Panorama/and or First Tri screen: ? ?risk NT scan:sched for 03/07/23 AFP: FAS: Completed within normal limits. Glucose: early ? 28 wk glucose:=153, 3'gtt=68/136/132/108.- no gdm.... CBC 1st Tri: 12.9/39.3/275? 28 wk. CBC: 10.3/32.4/277 GBS: Vaccinations: Flu:discussed ..... Covid:is vaxed Tdap: given 07/24/23 Education/Services WIC: encouraged to join CBE: online Breast feeding classes:intro to latch covered... Social Supports/Stressors: Living situation: lives in own apt w BF (Maykel) Supports:BF, family here and in [place] Work/school: has graduated from [employer] in [place], works at [employer] Transportation: Labor, and Concerns: Labor support: Maykel Plan: prefers no epidural Feeding Plans: breast- rev latching- 03/06/23 control: OB Visit Log Initial Weight: 167 lb Date -?-?-?-?-?-?-?-?-?-?-?-?- EGA Weight Gest Week Fundal Ht Present FHR move Efface % Edema BP PrePreg We Weight GTT -?-?-?-?-?-?-?-?-?-?-?-?- Glucose LV Protein Blood Type 02/14/23 -?-?-?-?-?-?-?-?-?-?-?-?- 10w 0d 168 lb (+16 oz) 168 l b -?-?-?-?-?-?-?-?-?-?-?-?- 02/16/23 -?-?-?-?-?-?-?-?-?-?-?-?- 10w 2d 03/06/23 -?-?-?-?-?-?-?-?-?-?-?-?- 12w 6d 170 lb (+3 lb) 13 160 126/76 170 lb -?-?-?-?-?-?-?-?-?-?-?-?- 04/03/23 -?-?-?-?-?-?-?-?-?-?-?-?- 16w 6d 170 lb (+3 lb) 16 150 active 102/70 1 70 lb -?-?-?-?-?-?-?-?-?-?-?-?- 04/30/23 -?-?-?-?-?-?-?-?-?-?-?-?- 20w 5d 175 lb (+8 lb) 20 135 active 110/70 1 75 lb -?-?-?-?-?-?-?-?-?-?-?-?- 06/06/23 -?-?-?-?-?-?-?-?-?-?-?-?- 26w 0d 179 lb (+12 lb) 26 140 active 130/70 179 lb -?-?-?-?-?-?-?-?-?-?-?-?- 06/21/23 -?-?-?-?-?-?-?-?-?-?-?-?- 28w 1d 180 lb (+13 lb) 28 ? 150 active 102/66 180 lb -?-?-?-?-?-?-?-?-?-?-?-?- 07/10/23 -?-?-?-?-?-?-?-?-?-?-?-?- 30w 6d 186 lb (+19 lb) 30 ? 140 active 114/64 186 lb -?-?-?-?-?-?-?-?-?-?-?-?- 07/24/23 -?-?-?-?-?-?-?-?-?-?-?-?- 32w 6d 186 lb (+19 lb) 31 150 active 112/70 186 lb -?-?-?-?-?-?-?-?-?-?-?-?- 08/09/23 -?-?-?-?-?-?-?-?-?-?-?-?- 35w 1d 190 lb (+23 lb) 32 150 active 120/70 190 lb -?-?-?-?-?-?-?-?-?-?-?-?- 08/16/23 -?-?-?-?-?-?-?-?-?-?-?-?- 36w 1d 191 lb (+24 lb) 33 150 active 124/76 191 lb -?-?-?-?-?-?-?--?-?-?-?-?- 08/23/23 -?-?-?-?-?-?-?-?-?-?-?-?- 37w 1d 192 lb (+25 lb) 33 150 decreased 110/76 192 l b -?-?-?-?-?-?-?-?-?-?-?-?- Notes Visit Date: 08/23/23 Last Updated by: Gayla Vee CNM Note author: Gayla Vee CNM. 37.1wk. ALEXIA. Taking PNV, Doing well with no concerns. Good appetite, stays well hydrated. Denies any LOF, VB, abd. pain. or urinary symptoms. Weepy as she reports decreased FM, admits it's now been for a few weeks. Last US -24% growth. Has one ordered for Aug 29. has not heard from [facility] confirm her appt. Discussed: GBS, GC/ct all negative. LOF/Ctx's/VB, when to seek emergent care. discomforts, self help measures. Kick counts/FM and when to call the office for further eval. Encouraged a healthy well balanced diet, regular walking/exercise in . Hydrate well, 8-10 glasses of water daily. Go to [facility] now for NST, she agrees to the plan of care. Reports called to staff. RTO 1 wk Visit Date: 08/16/23 Last Updated by: Gayla Vee CNM Note author: Gayla Vee CNM/Gretchen Sanders medical review coordinator 31.5 36.1 wk ALEXIA. Feeling well. Taking PNV. Hydrating well and good appetite Good FM, no LOF, VB or abd pain. Not sleeping as well recently. Reports headache last few days which is not her normal and has trouble swallowing pills so she does not take anything for the headache. Reports no other symptoms. Denies vaginal itching or irritation. Discussed: PTL - LOF, VB, abd pain. GBS and gc/ct testing today, requested VE-LTC. Recommend getting the flu vaccination. Growth US ordered; small for dates. PEC - headaches: not resolved with 2 regular strength Tylenol doses, visual disturbances warnings and when to call for further evaluation. Discussed liquid form of Tylenol as an option for her to use. Reviewed when to call for any VB, LOF, contractions, Kick counts reviewed and when to call for any decreased FM. Encouraged patient to sign up for patient portal. Discussed to call the service here for any emergencies/deliveries to be directed to [facility]. All of her questions and concerns were addressed to the best of my ability and shared decision making. She is agreeable to plan of care. RTO 1 wk. Visit Date: 08/09/23 Last Updated by: Gayla Vee CNM Note author: Gayla Vee CNM/Melinda Joyner medical review coordinator 35.1 wk ALEXIA. Feeling well. Taking PNV. Hydrating well and good appetite Good FM, no LOF, ?VB or abd pain. US: pending completed 08/08/23, was told all was normal. Advised GBS screen n/v. Enc. [facility] enrollment-online breast feeding video/supports. CBE-done via the web. Discussed: PTL - LOF, VB, abd pain. PEC - headaches: not resolved with 2 regular strength Tylenol doses, visual disturbances warnings and when to call for further evaluation. Reviewed when to call for any VB, LOF, contractions, Kick counts reviewed and when to call for any decreased FM. Encouraged patient to sign up for patient portal. Discussed to call the service here for any emergencies/deliveries to be directed to [facility]. All of her questions and concerns were addressed to the best of my ability and shared decision making. She is agreeable to plan of care. RTO in 1 week. Visit Date: 07/24/23 Last Updated by: Gayla Vee CNM Note author: Gayla Vee CNM/Gretchen Sanders medical review coordinator 32.6 wk ALEXIA. Feeling well. Taking PNV. Hydrating well and good appetite Good FM, no LOF, VB or abd pain. Reports sharp cramping at times, now resolved, improved at rest. Discussed: PTL - LOF, VB, abd pain. Advanced discomforts and self help measures, when to call for s/s re: pelvic pain, pressure, ligament discomfort. TDaP explained and ordered today. growth US ordered. PEC - headaches: not resolved with 2 regular strength Tylenol doses, visual disturbances warnings and when to call for further evaluation. Reviewed when to call for any VB, LOF, contractions, Kick counts reviewed and when to call for any decreased FM. Encouraged patient to sign up for patient portal. Discussed to call the service here for any emergencies/deliveries to be directed to [facility]. All of her questions and concerns were addressed to the best of my ability and shared decision making. She is agreeable to plan of care. RTO 2 wks. Visit Date: 07/10/23 Last Updated by: Melissa Prater CNM Patient is here for visit she is not having any concerns though did inquire about various sensations in her body reviewed what to do if she has pain recommend making sure she is drinking sufficient fluids. Discussed round ligament pain and other sensations. Not having any problem with constipation these days taking her iron and vitamins. Getting ready for the baby at home. Continue preparations for labor. RTC 2w. Visit Date: 06/21/23 Last Updated by: Melissa Prater CNM Patient is here for visit at 28 weeks and 1 day. Her 3 hour GTT was within normal limits but her CBC showed some mild anemia with an H&H of 10 and 32. She is taking her iron but she sometimes forgets specially if she does not take it with her vitamin discussed strategies for remembering and better to take it with her vitamin than forget it altogether. She does not like juice that much to take it with the vitamin-C rich juice.. She started her maternity leave with her job because her boss was telling her she had to negotiate with her coworkers when she needed off for an appointments and was making difficulty with her coworkers so she decided instead to stop working and she is using the time to study for a test in order to join either the [employer] or the [employer] and she is hoping to takeit before she has the baby because the results are good for 2 years. She wants to be able to provide for herself and her baby on her own and not depend on anybody. She says her parents will help for the father the baby will step up to parental responsibilities too. A few days ago she did have some lower abdominal cramping that felt a l ittle bit like period cramps so she laid down for a while and it got better and she felt it again another time. It is gone now I reviewed to drink more water and if she did so and it ever did not get better or if it became stronger and got worse she should call and we would tell her to go to [facility]. Abdomen was soft throughout this visit . The follow-up ultrasound that was done soon after the last visit showed normal anatomy and normal growth no need for further ultrasounds. Visit Date: 06/06/23 Last Updated by: Melissa Prater CNM Patient is here at 26 weeks and 0 days for scheduled visit. Review of the chart shows the ultrasound that was done on May 18 at 23 weeks and 0 days was within normal limits however they had some incomplete views and they requested a follow-up scan to be done in 4 weeks and I am placing the order right now for that. She does have some sniffles today but can not tell if there allergies or a cold she does not appear ill discussed allergies and ways to ameliorate them and ways to prevent and prevent transmission of upper respiratory infections. Discussed future flu vaccines/COVID vaccines. Her next visit can be in 2 weeks and that is when we will have her get the lab work as well I explained what we we testing for. Visit Date: 04/30/23 Last Updated by: Melissa Prater CNM Patient is here for her visit. She decided she did not really need to call [facility] for her panic attacks. Discussed that if she feels she needs assistance for anything involving how she is feeling about things that that would be the best place to start. She also recounts that sometimes she gets a little bit dizzy. Discussed temporary drops in blood pressure in that can happen and what to do if she is not feeling good to sit down and put her head down. No evidence of anemia in the labs. Patient did have her nuchal translucency ultrasound and the beginning of February which was within normal limits and she says she did go for the blood work however the results from the 1st trimester screening have not arrived to the chart yet. They will be requested again. Anatomy ultrasound was ordered at the last visit but has not been scheduled yet according to the patient another request sent to schedule this soon as she is now 20 weeks and 5 days.. Reviewed intake and ext acted changes in the next few weeks in the and supports. ALEXIA 4 weeks Visit Date: 04/03/23 Last Updated by: Melissa Prater CNM Here at 16 weeks and 6 days for her visit. She is doing fairly well but she did have some things to talk about today. She has had panic attacks often on since she was 7 years old and she feels that they are coming back stronger than they were for a while she has not been to therapy or anything for it she did talk to somebody about it when she was growing up in [place] but she would like to have some help around this she does not think it is related to stress or anxiety about the baby but she does identify the issue is anxiety. She says the is no issue with relationships. Discussed options and ways to slow her breathing and will place [facility] referral and I gave her brochures in Malian and Estonian so she can call herself as well. She feels she is eating well she went for the nuchal translucency ultrasound and she says she did go for the blood work but results are not in the chart will have someone call for those. Order placed for anatomy survey ultrasound in more less 3 weeks at [facility]. She sometimes feels like she gets a little lightheaded and her vision goes a little bit and she gets a little dizzy discussed temporary drops in blood pressure in she is not anemic and a random blood sugar done in January was within normal range reviewed what to do if she gets dizzy and how to keep herself safe. She also was in [place] for 2 weeks and enjoyed eating a lot of her grandma's rice. RTC 4 weeks Visit Date: 03/06/23 Last Updated by: Melissa Prater CNM Patient is here for her 1st provider visit at 12 weeks and 6 days she has certain dates and her date was also confirmed by an ultrasound at 5 weeks and 6 days which shielded in GRETTA of 09/12/2023 GRETTA by her 12/07/2022 LMP is 09/13/2023. We will use her GRETTA. She has her nuchal translucency ultrasound scheduled for tomorrow at [facility] and will be bringing her boyfriend there. She graduated from vocational program in [place] and has to diploma is. She works at [employer] she lives in her own apartment with her boyfriend and she says they are very happy. She is going to visit her family in [place] on March 24. She is vaccinated against COVID. I informed her about her lab work which was normal with the exception of not being immune to chickenpox but that can be rectified after her . She has plans to breastfeed reviewed healthy diet she eats a variety of foods in her diet. Reviewed the need for calcium and a very nutrition. She takes her vitamins every day. She has no worries about STDs. Pelvic exam was deferred as it was done on 01/18/[address] Salazar. Reviewed care and reasons to call and what it problems would necessitate of visit to [facility] and what indications might result in a transfer of care. She lives and works in [place] so prefers care here for now and is fine with delivering at [facility]. RTC 4 weeks. Reviewed that she will also be getting lab work in conjunction with the ultrasound tomorrow at [facility] and we will have the results in a couple of weeks. States she has a history of anxiety but is not having any problems now she scored 1 on the EPDS. Visit Date: 02/16/23 Varicella nonimmune, vaccination Visit Date: 02/14/23 Last Updated by: Miriam Puga LPN [facility] is here today for her nurse intake. LMP12/07/22 GRETTA 09/13/23. GRETTA by u/s on 09/13/23=CWD. 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 She lives at home with her significant other, and they are both excited about the . She does have anxiety per pt, but does not see a counselor at this time. Aware to reach out if she desires to have appt. Pt has little known FH of her parents, as they do not communicate much. Pt has had some nausea but is eating and drinking well. Discussed more frequent smaller amounts of food, healthy food choices, and good H2O intake. Pt is taking her PNV every day. She was smoking MJ but quit 2 mos prior to conceiving. She denies any vaginal bleeding, or cramping. She will be starting a low impact exercise program. Pt aware she will deliver at [facility], and if she becomes High risk at any point, she would be transferred to a [facility] practice. Pt will be traveling in February to [place] for vacation. Discussed with pt NT u/s and labs that will check for chromosome d.o. Pt will have her PNL done today as well as UDS. Pt brought to front line supervisor for scheduling OB PE. Discussed with pt, how to re ach head refrigeration engineer . packet discussed and given to pt. Coding Level of Care Code [place]
== END 2023-08-23 10:49 | disposition home or self-care (01) ==
LOC: HO.HWS 10:27
PROVIDERS: PCP Internal Medicine; Visit Provider Advanced Practice Midwife
DX: Z34.90 Encounter for supervision of normal pregnancy, unspecified, unspecified trimester (principal)
CPT/HCPCS: 25942

== ENCOUNTER → 2023-08-23 10:26 | Outpatient (BNVA) | payer MEDICAID, SELFPAY | PROVIDERS: PCP Internal Medicine; Visit Provider Advanced Practice Midwife | DX: Z34.03 Encounter for supervision of normal first pregnancy, third trimester (principal); Z3A.37 37 weeks gestation of pregnancy | CPT/HCPCS: 99212 ==

== ENCOUNTER 2023-08-30 09:05 | Outpatient (AMB) | payer MEDICAID, SELFPAY ==
[2023-08-30 09:07] VITALS: BP 122/84; BMI 31.6
--- NOTE | 2023-08-30 09:07 | A.OFFVISPN_ITS ---
Intake Vital Signs 08/30/23 09:07 Height 5 ft 6 in Weight 196 lb BMI 31.6 BP 122/84 Intake Visit Reasons: ALEXIA Marketing Proposal Coordinator: Marketing Proposal Coordinator Present (Lauryn) Allergies No Known Allergies Allergy (Verified 08/30/23 09:07) Medication List - Last Reconciled 08/30/23 by Melissa Prater CNM ferrous sulfate 324 mg PO BID PNV no.[id number] 400 mcg-35 mg- 25 mg-5 mg ( Gummies) 1 tab PO daily 30 days Patient : Yes PFSH Medical History (Updated 08/30/23 @ 10:23 by Melissa Prater CNM) Small for dates affecting management of mother Social History Household Members: Significant Other Housing: Apartment Alcohol intake: never Patient Tobacco Use Status: Never used Tobacco Patient : Yes Current occupational status: employed Current occupation: [employer] Sexual orientation: Straight/Heterosexual Gender identity: Female Female Reproductive History Menstrual Age of Menarche: 11 History History 1 Elective abortions 0 Para 0 Spontaneous abortions 0 Hx # Term Pregnancies 0 Ectopic pregnancies 0 Hx # Pregnancies 0 Multiple births Visit GRETTA Calculator Estimated Delivery Date Method Current WG Current Estimate 09/12/23 Ultrasound #1 38w 1d Other Estimates 09/13/23 LMP (Certain) 38w 0d Expected Delivery Route/Plan vaginal Specific Issues/Plans 17 yr. old ? ? G1 ?P0 ? ? ?LMP: 12/07/22 EDC: 09/13/23 ?by certain lmp, conf by u/s ? ? ?Blood type: O pos Problem List: 1. Anxiety 2. Teen 3. Varicella non immune Testing: Panorama/and or First Tri screen: ? ?risk NT scan:sched for 03/07/23 AFP: FAS: Completed within normal limits. Glucose: early ? 28 wk glucose:=153, 3'gtt=68/136/132/108.- no gdm.... CBC 1st Tri: 12.9/39.3/275? 28 wk. CBC: 10.3/32.4/277 GBS: Vaccinations: Flu:discussed ..... Covid:is vaxed Tdap: given 9/26/23 Education/Services WIC: encouraged to join CBE: online Breast feeding classes:intro to latch covered... Social Supports/Stressors: Living situation: lives in own apt w BF (Maykel) Supports:BF, family here and in [place] Work/school: has graduated from [employer] school in [place], works at [employer] Transportation: Labor, and Concerns: Labor support: Maykel Plan: prefers no epidural Infant Feeding Plans: breast- rev latching- 03/06/23 control: OB Visit Log Initial Weight: 167 lb Date -?-?-?-?-?-?-?-?-?-?-?-?- EGA Weight Gest Week Fundal Ht Present FHR move Efface % Edema BP PrePreg We Weight GTT -?-?-?-?-?-?-?-?-?-?-?-?- Glucose LV Protein Blood Type 02/14/23 -?-?-?-?-?-?-?-?-?-?-?-?- 10w 0d 168 lb (+16 oz) 168 l b -?-?-?-?-?-?-?-?-?-?-?-?- 02/16/23 -?-?-?-?-?-?-?-?-?-?-?-?- 10w 2d 03/06/23 -?-?-?-?-?-?-?-?-?-?-?-?- 12w 6d 170 lb (+3 lb) 13 160 126/76 170 lb -?-?-?-?-?-?-?-?-?-?-?-?- 04/03/23 -?-?-?-?-?-?-?-?-?-?-?-?- 16w 6d 170 lb (+3 lb) 16 150 active 102/70 1 70 lb -?-?-?-?-?-?-?-?-?-?-?-?- 04/30/23 -?-?-?-?-?-?-?-?-?-?-?-?- 20w 5d 175 lb (+8 lb) 20 135 active 110/70 1 75 lb -?-?-?-?-?-?-?-?-?-?-?-?- 06/06/23 -?-?-?-?-?-?-?-?-?-?-?-?- 26w 0d 179 lb (+12 lb) 26 140 active 130/70 179 lb -?-?-?-?-?-?-?-?-?-?-?-?- 06/21/23 -?-?-?-?-?-?-?-?-?-?-?-?- 28w 1d 180 lb (+13 lb) 28 ? 150 active 102/66 180 lb -?-?-?-?-?-?-?-?-?-?-?-?- 07/10/23 -?-?-?-?-?--?-?-?-?-?-?-?- 30w 6d 186 lb (+19 lb) 30 ? 140 active 114/64 186 lb -?-?-?-?-?-?-?-?-?-?-?-?- 07/24/23 -?-?-?-?-?-?-?-?-?-?-?-?- 32w 6d 186 lb (+19 lb) 31 150 active 112/70 186 lb -?-?-?-?-?-?-?-?-?-?-?-?- 08/09/23 -?-?-?-?-?-?-?-?-?-?-?-?- 35w 1d 190 lb (+23 lb) 32 150 active 120/70 190 lb -?-?-?-?-?-?-?-?-?-?-?-?- 08/16/23 -?-?-?-?-?-?-?-?-?-?-?-?- 36w 1d 191 lb (+24 lb) 33 150 active 124/76 191 lb -?-?-?-?-?-?-?-?-?-?-?-?- 08/23/23 -?-?-?-?-?-?-?-?-?-?-?-?- 37w 1d 192 lb (+25 lb) 33 150 decreased 110/76 192 l b -?-?-?-?-?-?-?-?-?-?-?-?- 08/30/23 -?-?-?-?-?-?-?-?-?-?-?-?- 38w 1d 196 lb (+29 lb) term 35 150 decreased 122/84 196 lb -?-?-?-?-?-?-?-?-?-?-?-?- Notes Visit Date: 08/30/23 Last Updated by: Melissa Prater CNM Patient presents for visit at 38 weeks and 1 day. She had presented with less growth at the previous several visits and was sent to [facility] for evaluation including NSTs and ultrasound. She had a visit with perinatology yesterday and an ultrasound that showed her fetus at the 18th percentile but abdominal circumference was lagging at less than the 10th percentile qualify for growth restriction. Discussion per perinatology took place with the patient about the need for for testing and that was scheduled for a nonstress test tomorrow 11 3 a repeat ultrasound BPP on Sunday and nonstress test the following Sunday unless she is delivered sooner for either reasons. Discussion took place about the recommendation to d eliver her between 38 and 39 weeks which is where she is now. I am reviewing this all with the patient and discussing the need to follow the with these recommendations and the patient voices good understanding. Her plan is to have her partner as her support. Discussed that inducing labor can sometimes take longer than regular labor and that the providers taking direct care of her at [facility] be the ones that need to make the decision on exactly what methodology is used at the time to ripen her cervix and that she will be monitored continuously and have an IV. SVE pending and will make a plan with [facility]. The patient reports that the baby has not been moving for her today and it has generally been moving less in the last few weeks. FHT auscultated 150 this CNM thought she felt some movement but the patient did not feel any movement. There was a perceptible increase in FHT with the perceived motion. SVE is very posterior medium thickness medium firmness completely closed. Call placed to [facility] in report being given for patient to present there for nonstress test and discussion with cm the plan of care for induction. Will also have patient sign for official transfer and all records to be sent. Report given to Soumya at [facility]. Visit Date: 08/23/23 Last Updated by: Gayla Vee CNM Note author: Gayla Vee CNM. 37.1wk. ALEXIA. Taking PNV, Doing well with no concerns. Good appetite, stays well hydrated. Denies any LOF, VB, abd. pain. or urinary symptoms. Weepy as she reports decreased FM, admits it's now been for a few weeks. Last US -24% growth. Has one ordered for Aug 29. has not heard from [facility] confirm her appt. Discussed: GBS, GC/ct all negative. LOF/Ctx's/VB, when to seek emergent care. discomforts, self help measures. Kick counts/FM and when to call the office for further eval. Encouraged a healthy well balanced diet, regular walking/exercise in . Hydrate well, 8-10 glasses of water daily. Go to [facility] now for NST, she agrees to the plan of care. Reports called to staff. RTO 1 wk Visit Date: 08/16/23 Last Updated by: Gayla Vee CNM Note author: Gayla Vee CNM/Gretchen Sanders medical sociologist 31.5 36.1 wk ALEXIA. Feeling well. Taking PNV. Hydrating well and good appetite Good FM, no LOF, VB or abd pain. Not sleeping as well recently. Reports headache last few days which is not her normal and has trouble swallowing pills so she does not take anything for the headache. Reports no other symptoms. Denies vaginal itching or irritation. Discussed: PTL - LOF, VB, abd pain. GBS and gc/ct testing today, requested VE-LTC. Recommend getting the flu vaccination. Growth US ordered; small for dates. PEC - headaches: not resolved with 2 regular strength Tylenol doses, visual disturbances warnings and when to call for further evaluation. Discussed liquid form of Tylenol as an option for her to use. Reviewed when to call for any VB, LOF, contractions, Kick counts reviewed and when to call for any decreased FM. Encouraged patient to sign up for patient portal. Discussed to call the service here for any emergencies/deliveries to be directed to [facility]. All of her questions and concerns were addressed to the best of my ability and shared decision making. She is agreeable to plan of care. RTO 1 wk. Visit Date: 08/09/23 Last Updated by: Gayla Vee CNM Note author: Gayla Vee CNM/Melinda Joyner medical sociologist 35.1 wk ALEXIA. Feeling well. Taking PNV. Hydrating well and good appetite Good FM, no LOF, ?VB or abd pain. US: pending completed 08/08/23, was told all was normal. Advised GBS screen n/v. Enc. [facility] enrollment-online breast feeding video/supports. CBE-done via the web. Discussed: PTL - LOF, VB, abd pain. PEC - headaches: not resolved with 2 regular strength Tylenol doses, visual disturbances warnings and when to call for further evaluation. Reviewed when to call for any VB, LOF, contractions, Kick counts reviewed and when to call for any decreased FM. Encouraged patient to sign up for patient portal. Discussed to call the service here for any emergencies/deliveries to be directed to [facility]. All of her questions and concerns were addressed to the best of my ability and shared decision making. She is agreeable to plan of care. RTO in 1 week. Visit Date: 07/24/23 Last Updated by: Gayla Vee CNM Note author: Gayla Vee CNM/Gretchen Sanders medical sociologist 32.6 wk ALEXIA. Feeling well. Taking PNV. Hydrating well and good appetite Good FM, no LOF, VB or abd pain. Reports sharp cramping at times, now resolved, improved at rest. Discussed: PTL - LOF, VB, abd pain. Advanced discomforts and self help measures, when to call for s/s re: pelvic pain, pressure, ligament discomfort. TDaP explained and ordered today. growth US ordered. PEC - headaches: not resolved with 2 regular strength Tylenol doses, visual disturbances warnings and when to call for further evaluation. Reviewed when to call for any VB, LOF, contractions, Kick counts reviewed and when to call for any decreased FM. Encouraged patient to sign up for patient portal. Discussed to call the service here for any emergencies/deliveries to be directed to [facility]. All of her questions and concerns were addressed to the best of my ability and shared decision making. She is agreeable to plan of care. RTO 2 wks. Visit Date: 07/10/23 Last Updated by: Melissa Prater CNM Patient is here for visit she is not having any concerns though did inquire about various sensations in her body reviewed what to do if she has pain recommend making sure she is drinking sufficient fluids. Discussed round ligament pain and other sensations. Not having any problem with constipation these days taking her iron and vitamins. Getting ready for the baby at home. Continue preparations for labor. RTC 2w. Visit Date: 06/21/23 Last Updated by: Melissa Prater CNM Patient is here for visit at 28 weeks and 1 day. Her 3 hour GTT was within normal limits but her CBC showed some mild anemia with an H&H of 10 and 32. She is taking her iron but she sometimes forgets specially if she does not take it with her vitamin discussed strategies for remembering and better to take it with her vitamin than forget it altogether. She does not like juice that much to take it with the vitamin-C rich juice.. She started her maternity leave with her job because her boss was telling her she had to negotiate with her coworkers when she needed off for an appointments and was making difficulty with her coworkers so she decided instead to stop working and she is using the time to study for a test in order to join either the [employer] or the [employer] and she is hoping to takeit before she has the baby because the results are good for 2 years. She wants to be able to provide for herself and her baby on her own and not depend on anybody. She says her parents will help for the father the baby will step up to parental responsibilities too. A few days ago she did have some lower abdominal cramping that felt a little bit like period cramps so she laid down for a while and it got better and she felt it again another time. It is gone now I reviewed to drink more water and if she did so and it ever did not get better or if it became stronger and got worse she should call and we would tell her to go to [facility]. Abdomen was soft throughout this visit . The follow-up ultrasound that was done soon after the last visit showed normal anatomy and normal growth no need for further ultrasounds. Visit Date: 06/06/23 Last Updated by: Melissa Prater CNM Patient is here at 26 weeks and 0 days for scheduled visit. Review of the chart shows the ultrasound that was done on May 18 at 23 weeks and 0 days was within normal limits however they had some incomplete views and they requested a follow-up scan to be done in 4 weeks and I am placing the order right now for that. She does have some sniffles today but can not tell if there allergies or a cold she does not appear ill discussed allergies and ways to ameliorate them and ways to prevent and prevent transmission of upper respiratory infections. Discussed future flu vaccines/COVID vaccines. Her next visit can be in 2 weeks and that is when we will have her get the lab work as well I explained what we we testing for. Visit Date: 04/30/23 Last Updated by: Melissa Prater CNM Patient is here for her visit. She decided she did not really need to call [facility] for her panic attacks. Discussed that if she feels she needs assistance for anything involving how she is feeling about things that that would be the best place to start. She also recounts that sometimes she gets a little bit dizzy. Discussed temporary drops in blood pressure in that can happen and what to do if she is not feeling good to sit down and put her head down. No evidence of anemia in the labs. Patient did have her nuchal translucency ultrasound and the beginning of February which was within normal limits and she says she did go for the blood work however the results from the 1st trimester screening have not arrived to the chart yet. They will be requested again. Anatomy ultrasound was ordered at the last visit but has not been scheduled yet according to the patient another request sent to schedule this soon as she is now 20 weeks and 5 days.. Reviewed intake and ext acted changes in the next few weeks in the and supports. ALEXIA 4 weeks Visit Date: 04/03/23 Last Updated by: Melissa Prater CNM Here at 16 weeks and 6 days for her visit. She is doing fairly well but she did have some things to talk about today. She has had panic attacks often on since she was 7 years old and she feels that they are coming back stronger than they were for a while she has not been to therapy or anything for it she did talk to somebody about it when she was growing up in [place] but she would like to have some help around this she does not think it is related to stress or anxiety about the baby but she does identify the issue is anxiety. She says the is no issue with relationships. Discussed options and ways to slow her breathing and will place [facility] referral and I gave her brochures in Lithuanian and English so she can call herself as well. She feels she is eating well she went for the nuchal translucency ultrasound and she says she did go for the blood work but results are not in the chart will have someone call for those. Order placed for anatomy survey ultrasound in more less 3 weeks at [facility]. She sometimes feels like she gets a little lightheaded and her vision goes a little bit and she gets a little dizzy discussed temporary drops in blood pressure in she is not anemic and a random blood sugar done in January was within normal range reviewed what to do if she gets dizzy and how to keep herself safe. She also was in [place] for 2 weeks and enjoyed eating a lot of her grandma's rice. RTC 4 weeks Visit Date: 03/06/23 Last Updated by: Melissa Prater CNM Patient is here for her 1st provider visit at 12 weeks and 6 days she has certain dates and her date was also confirmed by an ultrasound at 5 weeks and 6 days which shielded in GRETTA of 09/12/2023 GRETTA by her 12/07/2022 LMP is 09/13/2023. We will use her GRETTA. She has her nuchal translucency ultrasound scheduled for tomorrow at [facility] and will be bringing her boyfriend there. She graduated from vocational program in [place] and has to diploma is. She works at [employer] she lives in her own apartment with her boyfriend and she says they are very happy. She is going to visit her family in [place] on March 24. She is vaccinated against COVID. I informed her about her lab work which was normal with the exception of not being immune to chickenpox but that can be rectified after her . She has plans to breastfeed reviewed h ealthy diet she eats a variety of foods in her diet. Reviewed the need for calcium and a very nutrition. She takes her vitamins every day. She has no worries about STDs. Pelvic exam was deferred as it was done on 01/18/[address] Salazar. Reviewed care and reasons to call and what it problems would necessitate of visit to [facility] and what indications might result in a transfer of care. She lives and works in [place] so prefers care here for now and is fine with delivering at [facility]. RTC 4 weeks. Reviewed that she [place] with the ultrasound tomorrow at [facility] and we will have the results in a couple of weeks. States she has a history of anxiety but is not having any problems now she scored 1 on the EPDS. Visit Date: 02/16/23 Varicella nonimmune, vaccination Visit Date: 02/14/23 Last Updated by: Miriam Puga LPN [facility] is here today for her nurse intake. LMP12/07/22 GRETTA 09/13/23. GRETTA by u/s on 09/13/23=CWD. 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 She lives at home with her significant other, and they are both excited about the . She does have anxiety per pt, but does not see a counselor at this time. Aware to reach out if she desires to have appt. Pt has little known FH of her parents, as they do not communicate much. Pt has had some nausea but is eating and drinking well. Discussed more frequent smaller amounts of food, healthy food choices, and good H2O intake. Pt is taking her PNV every day. She was smoking MJ but quit 2 mos prior to conceiving. She denies any vaginal bleeding, or cramping. She will be starting a low impact exercise program. Pt aware she will deliver at [facility], and if she becomes High risk at any point, she would be transferred to a [facility] practice. Pt will be traveling in February to [place] for vacation. Discussed with pt NT u/s and labs that will check for chromosome d.o. Pt will have her PNL done today as well as UDS. Pt brought to front end application developer for scheduling OB PE. Discussed with pt, how to reach commission broker MD. packet discussed and given to pt. Assessment & Plan Assessment & Plan (1) Small for dates affecting management of mother: Code(s): O36.5990 - Maternal care for other known or suspected poor growth, unspecified trimester, not applicable or unspecified Category: Medical (2) growth restriction antepartum: Code(s): O36.5990 - Maternal care for other known or suspected poor growth, unspecified trimester, not applicable or unspecified Category: Medical Coding Level of Care Code [place] Diagnoses Small for dates affecting management of mother O36.5990 growth restriction antepartum O36.5990
== END 2023-08-30 10:11 | disposition home or self-care (01) ==
PROVIDERS: PCP Internal Medicine; Visit Provider Advanced Practice Midwife
DX: O36.5990 Maternal care for other known or suspected poor fetal growth, unspecified trimester, not applicable or unspecified (principal)
CPT/HCPCS: 25942

== ENCOUNTER → 2023-08-30 09:05 | Outpatient (BNVA) | payer MEDICAID, SELFPAY | PROVIDERS: PCP Internal Medicine; Visit Provider Advanced Practice Midwife | DX: O36.5930 Maternal care for other known or suspected poor fetal growth, third trimester, not applicable or unspecified (principal); Z3A.38 38 weeks gestation of pregnancy; Z67.40 Type O blood, Rh positive | CPT/HCPCS: 99212 ==

== ENCOUNTER 2023-09-27 15:12 | Outpatient (AMB) | payer MEDICAID, SELFPAY ==
--- NOTE | 2023-09-27 15:13 | MHC.OFFVIS ---
Intake Vital Signs 09/27/23 15:15 BP 116/80 Intake Visit Reasons: IUD check Intake Note: 09/08/23 c/sec IUD inserted at time of delivery feels strings outside of vagina Pull Socket Assembler: Pull Socket Assembler Present (Lauryn) Allergies No Known Allergies Allergy (Verified 09/27/23 15:15) HPI HPI Comments History of Present Illness Details Presents today as a walk-in unscheduled visit. She delivered 3 weeks ago via at [facility] history of preeclampsia and failure to progress. She denies taking labetalol or any magnesium sulfate treatments IV. Records are unavailable. Her concerns today if she had a 8 year IUD most likely a Mirena inserted and reports the strings are hanging outside of her body currently she had her incision check appointment canceled by the office there and then rescheduled for next week. She denies any depression. She reports good support at home. She is bottle-feeding only. Her infant weight was 6lb 5oz. she is doing well and healthy. She denies any intimacy since delivery. [facility] Medical History (Updated 09/27/23 @ 15:23 by Gayla Vee CNM) History of pre-eclampsia Small for dates affecting management of mother Surgical History (Updated 09/27/23 @ 15:24 by Gayla Vee CNM) History of delivery Social History Household Members: Significant Other Housing: Apartment Alcohol intake: never Patient Tobacco Use Status: Never used Tobacco Current occupational status: employed Current occupation: [employer] Sexual orientation: Straight/Heterosexual Gender identity: Female Female Reproductive History Menstrual Age of Menarche: 11 Review of Systems Const All systems reviewed & are unremarkable except as noted in HPI and below Physical Exam Vital Signs: Last Vital Signs BP 116/80 09/27/23 15:15 Const General: cooperative, healthy appearing and no acute distress Orientation/consciousness: patient oriented x3 GI Other: Low-transverse incision clean intact with few scattered peeling Steri-Strips at the edges of the incision. No signs of infection, healing well. Inspection: Yes normal to inspection Palpation (GI): Soft to palpation and Other GI palpation findings present (Nontender) Rectal Exam - Female: visual inspection normal General: Yes bladder normal to palpation External Female Exam: normal appearance of the urethra and other (Long IUD strings blue colored extending from the introitus, trimmed to 3 cm) Speculum Exam - Vagina: normal appearance of the vagina, normal palpation, normal vaginal discharge and other (Locial discharge) Speculum Exam - Cervix: normal appearance of the cervix and normal palpation Bimanual exam- vagina & uterus: normal bimanual exam, normal palpation, uterine size normal, bladder normal to palpation, normal palpation, uterine shape normal and non-tender Bimanual Exam- Adnexa, other: normal adnexae Neuro General: patient oriented x3 Assessment & Plan Assessment & Plan (1) IUD surveillance: Code(s): Z30.431 - Encounter for routine checking of intrauterine contraceptive device (2) Postop check: Code(s): Z09 - Encounter for follow-up examination after completed treatment for conditions other than malignant neoplasm Plan Plan pelvic ultrasound to ascertain the position of the IUD due to the length of the string found today. She was advised not to have any unprotected intimacy due to the uncertainty of the position of the IUD until the ultrasound is complete. She can reschedule her 6 week checkup here. Release records for delivery, notes. All of her questions and concerns were addressed to the best of my ability and shared decision making. She is agreeable to the plan of care. Orders: Orders US pelvic limited Today Z30.431 - Encounter for routine checking of intrauterine contraceptive device Coding Level of Care Code Est Pt Level 3 (88579) Diagnoses IUD surveillance Z30.431 Postop check Z09
[2023-09-27 15:15] VITALS: BP 116/80
== END 2023-09-27 15:42 | disposition home or self-care (01) ==
LOC: HO.HWS 15:12
PROVIDERS: PCP Internal Medicine; Visit Provider Advanced Practice Midwife
DX: Z30.431 Encounter for routine checking of intrauterine contraceptive device (principal); Z09 Encounter for follow-up examination after completed treatment for conditions other than malignant neoplasm
CPT/HCPCS: 99213

== ENCOUNTER → 2023-09-27 15:12 | Outpatient (BNVA) | payer MEDICAID, SELFPAY | PROVIDERS: PCP Internal Medicine; Visit Provider Advanced Practice Midwife | DX: Z30.431 Encounter for routine checking of intrauterine contraceptive device (principal) | CPT/HCPCS: 99212 ==

== ENCOUNTER 2023-11-09 14:17 | Outpatient (REF) | payer MEDICAID, SELFPAY ==
--- NOTE | ~2023-11-09 | US_ITS ---
EXAMINATION: US PELVIS CLINICAL INFORMATION: Evaluate IUD. Intermittent vaginal bleeding. COMPARISON: None available. TECHNIQUE: Ultrasound of the pelvis is performed using both transabdominal and transvaginal transducers along with Doppler. Transvaginal imaging is performed due to inadequate visualization transabdominally. FINDINGS: Uterus: The uterus is anteverted and anteflexed and measures 10.4 x 3.7 x 8 cm. IUD present in the uterus. The position of the IUD is oblique and appears to partially extend into the myometrium at the right fundal region. Image 39/76 series 1. Trace fluid in the cervical region. Adnexa: Both ovaries are visualized. There is normal color flow to the adnexa. There is no ovarian torsion. There is no pelvic ascites or fluid collection. Right ovary measures 4.4 x 2.7 x 2.8 cm. Right ovarian volume 17.8 mL. The largest follicle/cyst measures 2 cm. Left ovary measures 3 x 4.3 x 5.6 cm. Left ovarian volume 79.1 mL. There is an anechoic cysts measuring 5.3 x 3.4 x 4.7 cm. Findings likely represent a probable benign cyst. Recommend followup ultrasonography in 3-6 months. No fluid in the cul-de-sac. US/US pelvic and transvaginal IMPRESSION: 1. IUD present in the uterus. The position of the IUD is oblique and appears to partially extend into the myometrium at the right fundal region. 2. Anechoic left ovarian cyst measuring 5.3 cm. Findings likely represent a probable benign cyst. Recommend followup ultrasonography in 3-6 months.
== END 2023-11-09 14:18 | disposition home or self-care (01) ==
LOC: HO.HMGCX 14:17
PROVIDERS: PCP Internal Medicine; Visit Provider Advanced Practice Midwife
DX: Z30.431 Encounter for routine checking of intrauterine contraceptive device (principal)
CPT/HCPCS: 76830; 76856

== ENCOUNTER 2023-12-04 13:17 | Outpatient (AMB) | payer MEDICAID, SELFPAY ==
[2023-12-04 13:30] VITALS: BP 120/80; BMI 28.9
--- NOTE | 2023-12-04 13:30 | A.OFFVIS_ITS ---
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 Her current IUD is malpositioned, placed 3 months ago. Ultrasound confirmed malpositioned and noted a 5.3 cm ovarian cyst on her left side. She currently is not having any discomfort on her left side of the pelvic region. She denies any risk to and no unprotected intimacy. [facility] Medical History (Updated 09/27/23 @ 15:23 by Gayla Vee CNM) History of pre-eclampsia Small for dates affecting management of mother Surgical History (Updated 09/27/23 @ 15:24 by Gayla Vee CNM) History of delivery Social History Household Members: Significant Other Housing: Apartment Alcohol intake: never Patient Tobacco Use Status: Never used Tobacco Current occupational status: employed Current occupation: [employer] Sexual orientation: Straight/Heterosexual Gender identity: Female Female Reproductive History Menstrual Age of Menarche: 11 Date of last menstrual period: 11/20/23 control method: progestin IUCD (Mirena IUD inserted 12/04/2023) Review of Systems Const All systems reviewed & are unremarkable except as noted in HPI and below Physical Exam Vital Signs: Last Vital Signs BP 120/80 12/04/23 13:30 BMI result Body Mass Index 28.9 Const General: cooperative, healthy appearing and no acute distress Orientation/consciousness: patient oriented x3 GI Inspection: Yes normal to inspection Palpation (GI): Soft to palpation and Other GI palpation findings present (Nontender) Rectal Exam - Female: visual inspection normal General: Yes bladder normal to palpation External Female Exam: normal appearance of the urethra Speculum Exam - Vagina: normal appearance of the vagina, normal palpation and normal vaginal discharge Speculum Exam - Cervix: normal appearance of the cervix, normal palpation and Other cervical findings present (IUD strings present) Bimanual exam- vagina & uterus: normal bimanual exam, normal palpation, uterine size normal, bladder normal to palpation, normal palpation, uterine shape normal and non-tender Bimanual Exam- Adnexa, other: normal adnexae Neuro General: patient oriented x3 Office Procedures IUD Insert/Removal Details 74754-BLG Insertion [id number]-JCR Removal Procedure code (CPT) selection complete Contraception Insert/Removal Details Details: The patient is here today for a IUD removal and reinsertion. Current IUD is malpositioned. She was counseled on the side effects including: menstrual cycle changes, pain, infection, bleeding, or expulsion. Risks of injury to the vagina, cervix, uterus, tubes, ovaries, bowel, bladder, and any adjacent tissue, resulting in nerve damage, scarring, and pain. Risks complications for the procedure that may require other test including ultrasounds, Xray, CT or MRI scan, surgery, anesthesia, blood transfusion. A urine test was completed and was negative. She was consented for the IUD insertion and has signed the consent form. All questions were answered. IUD removal/ Insertion: The patient was placed in the dorsal lithotomy position and a sterile speculum was inserted. The procedure was completed under aseptic technique. The cervix was cleansed with a Betadine solution x 3 swabs. The current IUD strings were visible at the os and grasped with a ring forcep and gently tugged with little pressure IUD came out with little effort due to low positioning. A single toothed tenaculum was applied to the cervix for stabilization, and the uterus was sounded to 8.5 cm. The device was inserted and released with a gentle motion. Bleeding from the tenaculum sites and the procedure were minimal. The strings were trimmed to 3cm. All of the equipment was removed and the bimanual was normal, no tip was palpable at the cervical os. The patient tolerated the procedure well and left the office in good condition. Post IUD Insertion Care: There may be some post insertion bleeding for several days that is usually light and can turn to a light brown or pink in color. Mild cramping may occur. Nothing in the vagina including: tampons, douching or intimacy for several days. You may take an over the counter mild analgesia like Tylenol or Advil (if no allergies), per the manufacturers recommendations on dosing and frequency. Follow the directions completely. Call the office if any: fever (over 100.4), flu like symptoms, abdominal pain, worsening cramping not resolved with over the counter medications, foul smelling vaginal odor, signs of infected appearing discharge, or heavy bleeding. Use a condom for a back up method if indicated for 7 days. Always use a condom for STI prevention; IUD's are not protective against STD's. Return to the office in 4-6 weeks for IUD recheck. This note is constructed using voice recognition software. While every effort has been made to ensure accuracy, video production assistant errors may have been included. 90724 - Insertion and Removal Office Meds Mirena 21 mcg/24 hours (8 yrs) 52 mg intrauterine device Performing Provider: Gayla Vee CNM Performing Location: [facility] Administered by: MARKELL Rosales on 12/04/23 14:29 Dose Route Admin Location Dispensed Lot Number Expiration Date [facility] Commercial Loan Analyst 1 device intrauterine 1 device [id number] 01/26/26 [id number] [employer] Results AMB Test Urine 2 AMB Test Urine Negative Last Edit by MARKELL Rosales on 12/04/23 13:38 Results Reviewed Results Reviewed: Laboratory Last Values Tst Clinic Negative 12/04/23 13:37 [facility] [place] [address] Ultrasound Report Signed Patient: Yamilex Gilliland MR#: [id number] : 2005 Acct:[id number] Age/Sex: 17 / F ADM Date: 11/09/23 Loc: HO.[facility] Attending Dr: Gayla Vee CNM Ordering Physician: Gayla Vee CNM Date of Service: 11/09/23 Procedure(s): US pelvic and transvaginal Accession Number(s): [id number] cc: Nicolette Pino MD; Gayla Vee CNM~ EXAMINATION: US PELVIS CLINICAL INFORMATION: Evaluate IUD. Intermittent vaginal bleeding. COMPARISON: None available. TECHNIQUE: Ultrasound of the pelvis is performed using both transabdominal and transvaginal transducers along with Doppler. Transvaginal imaging is performed due to inadequate visualization transabdominally. FINDINGS: Uterus: The uterus is anteverted and anteflexed and measures 10.4 x 3.7 x 8 cm. IUD present in the uterus. The position of the IUD is oblique and appears to partially extend into the myometrium at the right fundal region. Image 39/76 series 1. Trace fluid in the cervical region. Adnexa: Both ovaries are visualized. There is normal color flow to the adnexa. There is no ovarian torsion. There is no pelvic ascites or fluid collection. Right ovary measures 4.4 x 2.7 x 2.8 cm. Right ovarian volume 17.8 mL. The largest follicle/cyst measures 2 cm. Left ovary measures 3 x 4.3 x 5.6 cm. Left ovarian volume 79.1 mL. There is an anechoic cysts measuring 5.3 x 3.4 x 4.7 cm. Findings likely represent a probable benign cyst. Recommend followup ultrasonography in 3-6 months. No fluid in the cul-de-sac. US/US pelvic and transvaginal IMPRESSION: 1. IUD present in the uterus. The position of the IUD is oblique and appears to partially extend into the myometrium at the right fundal region. 2. Anechoic left ovarian cyst measuring 5.3 cm. Findings likely represent a probable benign cyst. Recommend followup ultrasonography in 3-6 months. Dictated By: Gilberto Braga MD Signed By: <Electronically signed by Gilberto Braga MD in OV> 11/09/23 1523 DD/ 1456 TD/TT: Pipe Bowls Paint Trimmer: SOFI Assessment & Plan Assessment & Plan (1) Cyst, ovarian: Code(s): N83.209 - Unspecified ovarian cyst, unspecified side Plan Discussed: Ovarian cyst, simple most likely will resolve on its own, due to the size reviewed warnings for torsion including increased pain. If increased pain to go right to the emergency room for immediate evaluation. Plan to repeat ultrasound follow-up to check the status of the cyst in 3 months, patient advised to follow up in the office for results. Annual exam in August. All of her questions and concerns were addressed to the best of my ability and shared decision making. She is agreeable to the plan of care. This note is constructed using voice recognition software. While every effort has been made to ensure accuracy, video production assistant errors may have been included. Orders: Orders US pelvic and transvaginal 3 Months N83.209 - Unspecified ovarian cyst, unspecified side AMB HCG Urine Test Today Z32.02 - Encounter for test, result negative AMB IUD Insertion/Removal - Patient Supply Today Z30.430 - Encounter for insertion of intrauterine contraceptive device CT NG by PCR Today Z20.2 - Contact with and (suspected) exposure to infections with a predominantly sexual mode of transmission Coding Level of Care Code Procedure Only Diagnoses Cyst, ovarian N83.209 CPT Codes Details - CPT: 32278-QCY Insertion ([id number]) Details - CPT: 03422-RYU Removal ([id number]) Details - Contraception: 47715 - Insertion and Removal ([id number]) Comment Additional coding for counseling of the ovarian cyst
== END 2023-12-04 14:57 | disposition home or self-care (01) ==
LOC: HO.HWS 13:17
PROVIDERS: PCP Internal Medicine; Visit Provider Advanced Practice Midwife
DX: Z30.430 Encounter for insertion of intrauterine contraceptive device (principal); N83.209 Unspecified ovarian cyst, unspecified side; Z32.02 Encounter for pregnancy test, result negative
CPT/HCPCS: 58300; 58301

== ENCOUNTER 2023-12-04 13:17 | Outpatient (REF) | payer MEDICAID, SELFPAY ==
[2023-12-04 17:25] LABS: CT PCR NOT DETECTED (Not Detect.); NG PCR NOT DETECTED (Not Detect.)
== END 2023-12-04 13:18 | disposition home or self-care (01) ==
LOC: HO.LNP 13:17
PROVIDERS: PCP Internal Medicine; Visit Provider Advanced Practice Midwife
DX: Z30.430 Encounter for insertion of intrauterine contraceptive device (principal); Z20.2 Contact with and (suspected) exposure to infections with a predominantly sexual mode of transmission; T83.32XA Displacement of intrauterine contraceptive device, initial encounter; N83.201 Unspecified ovarian cyst, right side
CPT/HCPCS: 0353U; 58300; 58301; 81025; J7298

== ENCOUNTER 2024-03-20 15:23 | Outpatient (REF) | payer MEDICAID, SELFPAY ==
--- NOTE | ~2024-03-20 | US_ITS ---
EXAMINATION: US PELVIS CLINICAL INFORMATION: IUD appears low lying, ovarian cyst on November 09, 2023 ultrasound, last menstrual period February 27, 2024. COMPARISON: November 09, 2023. TECHNIQUE: Ultrasound of the pelvis is performed using both transabdominal and transvaginal transducers along with Doppler. Transvaginal imaging is performed due to inadequate visualization transabdominally. FINDINGS: The uterus is anteverted and measures 8.2 x 3.2 x 5.8 cm. Endometrial thickness is 3 mm. IUD appears low lying within the uterus relative to the endometrium located towards the junction of the lower uterine segment/cervix and was previously noted to be oblique and partially extending into the myometrium at the right fundal region. Gynecologic consultation recommended to determine further management. Right ovary measures 3.1 x 2.0 x 2.6 cm, volume 8.9 mL and contains multiple small follicles. Left ovary measures 3.9 x 2.7 x 3.0 cm, volume 16.1 mL. Multiple small follicles identified. Previously identified 5.3 cm left ovarian cyst is no longer identified. US/US pelvic and transvaginal IMPRESSION: 1. IUD present in the uterus. IUD appears low lying within the uterus relative to the endometrium located towards the junction of the lower uterine segment/cervix and was previously noted to be oblique and partially extending into the myometrium at the right fundal region. Gynecologic consultation recommended to determine further management. 2. Endometrial thickness is 3 mm. 3. Interval resolution of previously identified 5.3 cm left ovarian cyst.
== END 2024-03-20 15:24 | disposition home or self-care (01) ==
LOC: HO.US 15:23
PROVIDERS: PCP Internal Medicine; Visit Provider Advanced Practice Midwife
DX: N83.209 Unspecified ovarian cyst, unspecified side (principal)
CPT/HCPCS: 76830; 76856

== ENCOUNTER 2024-04-17 09:46 | Outpatient (AMB) | payer MEDICAID, SELFPAY ==
--- NOTE | 2024-04-17 09:38 | A.OFFVIS_ITS ---
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 Phone call due to Covid 19 Pandemic. I spent 9 minutes speaking with the patient on the phone plus an additional 5 minutes reviewing the chart and 5 minutes updating the medical record for a total of 19minutes. Patient presents via phone to discuss: Ultrasound findings follow up IUD history of left ovarian cyst. [facility] Medical History History of pre-eclampsia Small for dates affecting management of mother Surgical History History of delivery Social History Household Members: Significant Other Housing: Apartment Alcohol intake: never Patient Tobacco Use Status: Never used Tobacco Current occupational status: employed Current occupation: [employer] Sexual orientation: Straight/Heterosexual Gender identity: Female Female Reproductive History Menstrual Age of Menarche: 11 Duration of menses: 3-5 days Date of last menstrual period: 04/03/24 control method: none Review of Systems Const All systems reviewed & are unremarkable except as noted in HPI and below Endo Reports no additional complaints Physical Exam Const General: cooperative, healthy appearing and no acute distress Psych Appearance: well kempt Attitude: cooperative Thought process: Normal thought process present Results Reviewed Results Reviewed: [address] [address] Ultrasound Report Signed Patient: Yamilex Gilliland MR#: [id number] : 2005 Acct:[id number] Age/Sex: 18 / F ADM Date: 03/20/24 Loc: HO.US Attending Dr: Gayla Vee CNM Ordering Physician: Gayla Vee CNM Date of Service: 03/20/24 Procedure(s): US pelvic and transvaginal Accession Number(s): [id number] cc: Nicolette Pino MD; Gayla Vee CNM~ EXAMINATION: US PELVIS CLINICAL INFORMATION: IUD appears low lying, ovarian cyst on November 09, 2023 ultrasound, last menstrual period February 27, 2024. COMPARISON: November 09, 2023. TECHNIQUE: Ultrasound of the pelvis is performed using both transabdominal and transvaginal transducers along with Doppler. Transvaginal imaging is performed due to inadequate visualization transabdominally. FINDINGS: The uterus is anteverted and measures 8.2 x 3.2 x 5.8 cm. Endometrial thickness is 3 mm. IUD appears low lying within the uterus relative to the endometrium located towards the junction of the lower uterine segment/cervix and was previously noted to be oblique and partially extending into the myometrium at the right fundal region. Gynecologic consultation recommended to determine further management. Right ovary measures 3.1 x 2.0 x 2.6 cm, volume 8.9 mL and contains multiple small follicles. Left ovary measures 3.9 x 2.7 x 3.0 cm, volume 16.1 mL. Multiple small follicles identified. Previously identified 5.3 cm left ovarian cyst is no longer identified. US/US pelvic and transvaginal IMPRESSION: 1. IUD present in the uterus. IUD appears low lying within the uterus relative to the endometrium located towards the junction of the lower uterine segment/cervix and was previously noted to be oblique and partially extending into the myometrium at the right fundal region. Gynecologic consultation recommended to determine further management. 2. Endometrial thickness is 3 mm. 3. Interval resolution of previously identified 5.3 cm left ovarian cyst. Dictated By: Sachi Burgos MD Signed By: <Electronically signed by Sachi Burgos MD in OV> 04/01/24 0606 DD/ 1547 TD/TT: Fine Arts Packer: Assessment & Plan Assessment & Plan (1) Encounter to discuss test results: Code(s): Z71.2 - Person consulting for explanation of examination or test findings (2) Malpositioned IUD: Code(s): T83.32XA - Displacement of intrauterine contraceptive device, initial encounter Qualifiers: Encounter type: initial encounter Qualified Code(s): T83.32XA - Displacement of intrauterine contraceptive device, initial encounter Plan Discussed: IUD malpositioned IUD lower uterine segment possibly in myometrial tissue, resolution of left ovarian cyst. Plan removal of IUD soon as possible, continue to use condoms as backup method for now. She is considering another control not a replacement for the IUD since she has had several in the past that were malpositioned or shifted. She will be scheduled for consult and removal same day visit. All of her questions and concerns were addressed to the best of my ability and shared decision making. She is agreeable to the plan of care. This note is constructed using voice recognition software. While every effort has been made to ensure accuracy, refund specialist errors may have been included. Coding Level of Care Code Tele Est Pt Level 3 (27111) Diagnoses Encounter to discuss test results Z71.2 Malpositioned intrauterine device (IUD), initial encounter T83.32XA Encounter type: initial encounter
== END 2024-04-17 10:34 | disposition home or self-care (01) ==
LOC: HO.HWS 09:46
PROVIDERS: PCP Internal Medicine; Visit Provider Advanced Practice Midwife
DX: Z71.2 Person consulting for explanation of examination or test findings (principal); T83.32XA Displacement of intrauterine contraceptive device, initial encounter
CPT/HCPCS: 99213

== ENCOUNTER → 2024-04-17 09:46 | Outpatient (BNVA) | payer MEDICAID, SELFPAY | PROVIDERS: PCP Internal Medicine; Visit Provider Advanced Practice Midwife ==

== ENCOUNTER 2024-04-23 08:31 | Outpatient (AMB) | payer MEDICAID, SELFPAY ==
--- NOTE | 2024-04-23 08:33 | A.OFFVIS_ITS ---
Vital Signs 04/23/24 08:35 Height 5 ft 6 in Weight 180 lb 2 oz BMI 29.1 BP 110/72 Blood Pressure Location Rt radial Position Sitting Intake Visit Reasons: iud removal/ bc consult Allergies No Known Allergies Allergy (Verified 04/17/24 09:38) Is last menstrual period known: Yes Last menstrual period: 04/06/24 Post menopausal: No Patient : No HPI Comments Details: Patient is here today for a IUD removal due to malpositioning, and a follow up on a ultrasound due to history of ovarian cyst. She reports using condoms consistently and has a negative test today. History of preeclampsia hypertension during her has a follow up with her primary care to monitor her blood pressure. She denies any contraindications to control such as: migraines with aura, history of DVT or pulmonary emboli, high blood pressure, liver disease, thrombolic disorders, Lupus, +NICOLETTE, breast cancer, or smoking. She was counseled regarding the removal of her IUD. She was consented for the procedure along with anticipatory guidance for the removal and the consents form was signed. She desires to proceed with the IUD removal. [facility] Surgical History History of delivery Social History Household Members: Significant Other Housing: Apartment Alcohol intake: never Patient Tobacco Use Status: Never used Tobacco Current occupational status: employed Current occupation: [employer] Sexual orientation: Straight/Heterosexual Gender identity: Female Female Reproductive History Menstrual Age of Menarche: 11 Date of last menstrual period: 04/06/24 Review of Systems Const All systems reviewed & are unremarkable except as noted in HPI and below Physical Exam Vital Signs: Last Vital Signs BP 110/72 04/23/24 08:35 BMI result Body Mass Index 29.1 Const General: cooperative, healthy appearing and no acute distress Orientation/consciousness: patient oriented x3 GI Inspection: Yes normal to inspection Palpation (GI): Soft to palpation and Other GI palpation findings present (Nontender) Rectal Exam - Female: visual inspection normal General: Yes bladder normal to palpation External Female Exam: normal appearance of the urethra Speculum Exam - Vagina: normal appearance of the vagina, normal palpation and normal vaginal discharge Speculum Exam - Cervix: normal appearance of the cervix, normal palpation and Other cervical findings present (IUD strings present at the os) Bimanual exam- vagina & uterus: normal bimanual exam, normal palpation, uterine size normal, bladder normal to palpation, normal palpation, uterine shape normal and non-tender Bimanual Exam- Adnexa, other: normal adnexae Neuro General: patient oriented x3 Office Procedures Contraception Insert/Removal Details Details: IUD Removal Procedure: The patient was placed in the dorsal lithotomy position. A speculum was inserted vaginally and the cervix and strings were visualized at the os. A ring forcep was utilized, and the patient was asked to give a deep cough while the strings were grasped and gently tugged at the same time, removing the IUD device intact. Minimal bleeding was observed. All of the equipment was removed. The patient tolerated the procedure well and left the office in good condition. [id number] - Removal Results Reviewed Results Reviewed: [address] [address] Ultrasound Report Signed Patient: Yamilex Gilliland MR#: [id number] : 2005 Acct:[id number] Age/Sex: 18 / F ADM Date: 03/20/24 Loc: HO.US Attending Dr: Gayla Vee CNM Ordering Physician: Gayla Vee CNM Date of Service: 03/20/24 Procedure(s): US pelvic and transvaginal Accession Number(s): [id number] cc: Nicolette Pino MD; Gayla Vee CNM~ EXAMINATION: US PELVIS CLINICAL INFORMATION: IUD appears low lying, ovarian cyst on November 09, 2023 ultrasound, last menstrual period February 27, 2024. COMPARISON: November 09, 2023. TECHNIQUE: Ultrasound of the pelvis is performed using both transabdominal and transvaginal transducers along with Doppler. Transvaginal imaging is performed due to inadequate visualization transabdominally. FINDINGS: The uterus is anteverted and measures 8.2 x 3.2 x 5.8 cm. Endometrial thickness is 3 mm. IUD appears low lying within the uterus relative to the endometrium located towards the junction of the lower uterine segment/cervix and was previously noted to be oblique and partially extending into the myometrium at the right fundal region. Gynecologic consultation recommended to determine further management. Right ovary measures 3.1 x 2.0 x 2.6 cm, volume 8.9 mL and contains multiple small follicles. Left ovary measures 3.9 x 2.7 x 3.0 cm, volume 16.1 mL. Multiple small follicles identified. Previously identified 5.3 cm left ovarian cyst is no longer identified. US/US pelvic and transvaginal IMPRESSION: 1. IUD present in the uterus. IUD appears low lying within the uterus relative to the endometrium located towards the junction of the lower uterine segment/cervix and was previously noted to be oblique and partially extending into the myometrium at the right fundal region. Gynecologic consultation recommended to determine further management. 2. Endometrial thickness is 3 mm. 3. Interval resolution of previously identified 5.3 cm left ovarian cyst. 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: Assessment & Plan Assessment & Plan (1) Malpositioned IUD: Code(s): T83.32XA - Displacement of intrauterine contraceptive device, initial encounter Qualifiers: Encounter type: initial encounter Qualified Code(s): T83.32XA - Displacement of intrauterine contraceptive device, initial encounter (2) Encounter to discuss test results: Code(s): Z71.2 - Person consulting for explanation of examination or test findings (3) Encounter for IUD removal: Code(s): Z30.432 - Encounter for removal of intrauterine contraceptive device Plan: IUD Removal Information: You may have light bleeding for several days, tapering off to a brown or pink color. Mild cramping after removal is common. If not allergic, you may take an over the counter mild analgesic for the discomfort, such as Tylenol or Advil (use dosing and frequency per the manufacturers recommendations). Call the office if you experience: fever (over 100.4), flu like symptoms, abdominal or pelvic pain, foul smelling discharge or heavy bleeding. This note is constructed using voice recognition software. While every effort has been made to ensure accuracy, email marketer errors may have been included. (4) BCP ( control pills) initiation: Code(s): Z30.011 - Encounter for initial prescription of contraceptive pills Plan Discussed: Ultrasound findings with malpositioned of IUD, in resolution of 5.3 ovarian cyst. Control Counseling- reviewed all options and used the CDC efficacy guideline chart. She does not want any injections. And is concerned about any weight gain or breakthrough bleeding issues. Use and side effects of control. Instructed to start the pill today. Recommended to take pill at same time every day and with food to prevent stomach upset. Switch to bedtime intake with food if still experiencing nausea. Consider setting the cell phone for alerts as a reminder to take the pill at the same time. Use a back up method (condoms or abstinence if needed) if any late or missed doses until the end of the pill pack. Take the dose as soon as possible, and take your regular pill on time. If you miss the pill often, then consider another option of control. Always use condoms for STI prevention if indicated. Instructed patient to take for at least 3 months the body is acclimated to it. Most side effects go away with time in the first three months. Warnings: go to ED if and loss of vision/blindness, severe headache, chest pain or difficulty breathing, severe abdominal pain, or any pain or swelling in an extremity. Return in 1 months for pill check, or sooner if any concerns. All of her questions and concerns were addressed to the best of my ability and shared decision making. She is agreeable to plan of care. Orders: Orders AMB HCG Urine Test Today Z32.02 - Encounter for test, result negative Medications: New levonorgestrel-ethinyl estrad 0.15 mg-30 mcg (91) (Jolessa) 1 tab PO DAILY 91 ea 0RF Coding Level of Care Code Procedure Only Diagnoses Malpositioned intrauterine device (IUD), initial encounter T83.32XA Encounter type: initial encounter Encounter to discuss test results Z71.2 Encounter for IUD removal Z30.432 BCP ( control pills) initiation Z30.011 CPT Codes Details - Contraception: 09698 - Removal ([id number]) Comment Add modifier for ultrasound follow up and control initiation counseling
[2024-04-23 08:35] VITALS: BP 110/72; BMI 29.1
== END 2024-04-23 09:29 | disposition home or self-care (01) ==
PROVIDERS: PCP Internal Medicine; Visit Provider Advanced Practice Midwife
DX: T83.32XA Displacement of intrauterine contraceptive device, initial encounter (principal); Z30.432 Encounter for removal of intrauterine contraceptive device; Z30.011 Encounter for initial prescription of contraceptive pills; Z71.2 Person consulting for explanation of examination or test findings
CPT/HCPCS: 58301; 99213

== ENCOUNTER → 2024-04-23 08:31 | Outpatient (BNVA) | payer MEDICAID, SELFPAY | PROVIDERS: PCP Internal Medicine; Visit Provider Advanced Practice Midwife | DX: T83.32XA Displacement of intrauterine contraceptive device, initial encounter (principal); Z71.2 Person consulting for explanation of examination or test findings; Z30.011 Encounter for initial prescription of contraceptive pills | CPT/HCPCS: 58301; 99212 ==

== ENCOUNTER 2024-05-30 13:51 | Outpatient (AMB) | payer MEDICAID, SELFPAY ==
--- NOTE | 2024-05-30 14:10 | MHC.OFFVIS ---
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 She additionally is using condoms as a backup method. She denies any contraindications to control such as: migraines with aura, history of DVT or pulmonary emboli, high blood pressure, liver disease, thrombolic disorders, Lupus, +ADY, breast cancer, or smoking. [facility] Surgical History History of delivery Social History Household Members: Significant Other Housing: Apartment Alcohol intake: never Patient Tobacco Use Status: Never used Tobacco Current occupational status: employed Current occupation: [employer] Sexual orientation: Straight/Heterosexual Gender identity: Female Female Reproductive History Menstrual Age of Menarche: 11 Date of last menstrual period: 04/06/24 Review of Systems Const All systems reviewed & are unremarkable except as noted in HPI and below Endo Reports no additional complaints Physical Exam Vital Signs: Last Vital Signs BP 112/70 05/30/24 14:14 Const General: cooperative, healthy appearing and no acute distress Psych Appearance: well kempt Attitude: cooperative Thought process: Normal thought process present Assessment & Plan Assessment & Plan (1) Surveillance for control, oral contraceptives: Code(s): Z30.41 - Encounter for surveillance of contraceptive pills Plan Discussed different pill options, prefers to continue with the same brand for now. Has annual exam scheduled for August. We will continue to use condoms as a backup method. Advised she can come in sooner if she is still concerned about her skin. All of her questions and concerns were addressed to the best of my ability and shared decision making. She is agreeable to the plan of care. This note is constructed using voice recognition software. While every effort has been made to ensure accuracy, rail switch operator errors may have been included. Medications: Refilled levonorgestrel-ethinyl estrad 0.15 mg-30 mcg (91) (Jolessa) 1 tab PO DAILY 91 ea 1RF Coding Level of Care Code Est Pt Level 3 (23787) Diagnoses Surveillance for control, oral contraceptives Z30.41
[2024-05-30 14:14] VITALS: BP 112/70
== END 2024-05-30 14:52 | disposition home or self-care (01) ==
PROVIDERS: PCP Internal Medicine; Visit Provider Advanced Practice Midwife
DX: Z30.41 Encounter for surveillance of contraceptive pills (principal)
CPT/HCPCS: 99213

== ENCOUNTER → 2024-05-30 13:51 | Outpatient (BNVA) | payer MEDICAID, SELFPAY | PROVIDERS: PCP Internal Medicine; Visit Provider Advanced Practice Midwife | DX: Z30.41 Encounter for surveillance of contraceptive pills (principal) | CPT/HCPCS: 99212 ==